=== PATIENT | female | born 1975 | race Caucasian/White ===

== ENCOUNTER 2021-06-28 14:22 | Outpatient (REF) | payer OTHER, SELFPAY ==
[2021-06-28 16:25] LABS: Alanine Aminotransferase 9 U/L (0-31); Albumin Level 3.5 g/dL (3.5-5.0); Alkaline Phosphatase 123 U/L (39-117); Anion Gap 20 (12-20); Aspartate Amino Transferase 16 U/L (5-31); Bilirubin Total 0.2 mg/dL (0.0-1.0); Blood Urea Nitrogen 35 mg/dL (9-16); Calcium 10.3 mg/dL (8.4-10.2); Carbon Dioxide 23 mmol/L (22-29); Chloride 100 mmol/L (96-108); Estimated Glomerular Filt Rate 15; Glucose Random 140 mg/dL (60-115); Potassium 5.8 mmol/L (3.3-5.1); Sodium 137 mmol/L (135-145); Total Protein 9.3 g/dL (6.5-8.0)
== END 2021-06-28 14:23 | disposition home or self-care (01) ==
LOC: HO.LAB 14:22
PROVIDERS: PCP Nurse Practitioner Family; Visit Provider Internal Medicine Hypertension Specialist
DX: E11.22 Type 2 diabetes mellitus with diabetic chronic kidney disease (principal); N18.4 Chronic kidney disease, stage 4 (severe)
CPT/HCPCS: 36415; 80053; 87086

== ENCOUNTER → 2022-02-01 10:57 | Outpatient (BNVA) | payer OTHER, SELFPAY | PROVIDERS: PCP Nurse Practitioner Family; Visit Provider Internal Medicine | DX: B49 Unspecified mycosis (principal) | CPT/HCPCS: 99202 ==

== ENCOUNTER 2022-02-18 06:21 | Day surgery (SDC) | payer OTHER, SELFPAY ==
--- NOTE | ~2022-02-18 | IR_ITS ---
PROCEDURE: IR INSERTION OF TUNNEL CATHETER CLINICAL INFORMATION: Sepsis. COMPARISON: None TECHNIQUE: Following explaining ultrasound and fluoroscopy-guided placement of a right-sided Ruelas catheter procedure, benefits and risk, a written consent was obtained. Patient was placed supine on fluoroscopy table and preliminary ultrasound imaging was obtained through the right neck. An optimal site was selected, marked, cleaned and draped in usual sterile manner. 1% lidocaine was injected puncture site. A single wall needle was then advanced under ultrasound guidance in the right jugular vein. After observing venous return a thin guidewire was advanced under fluoroscopy and placed in SVC and needle withdrawn. A 5 Nigerian dilator with sheath was placed over the guidewire and the entire unit anchored to the drape with hemostat. Approximately one-gauze length away from the right neck incision along the anterior chest wall 1% lidocaine was inserted. A small skin incision was performed. 1% lidocaine was then inserted through a subcutaneous track from the right anterior chest wall incision to the right neck incision. A tunneler attached was bluntly advanced from the right anterior chest wall incision to the right neck wall incision and was pulled with the catheter. The catheter was then sized appropriately. The 5 Nigerian dilator and the neck with the guidewire was removed and a 0.035 J-wire advanced and placed into the IVC under fluoroscopy. Subsequently a 5 Nigerian dilator was removed and replaced with a 6.6 Nigerian dilator with sheath. The guidewire and the dilator were removed and the pre sized 5 Nigerian Ruelas catheter was advanced through the peel-away sheath. The peel-away sheath was removed while holding the catheter in position. A single image was obtained following insertion of the catheter for documentation of catheter tip position. Single lumen Ruelas catheter was flushed with saline followed by heparin. 3-0 Nylon absorbable sutures were placed along the right anterior neck and the right anterior chest wall incision. Sterile dressing applied postprocedure. Patient tolerated procedure extremely well. IV sedation with fentanyl and Versed was administered during the exam. Patient was monitored by IR radiologist and IR nursing. All elements of maximal sterile barrier technique followed including use of cap, mask, sterile gown, sterile gloves, a sterile full body drape and hand hygiene. Also followed skin preparation with 2% chlorhexidine for cutaneous antisepsis, and sterile ultrasound preparation with sterile gel and probe cover when applicable. FINDINGS: On preliminary ultrasound imaging the right jugular vein is widely patent. Successful placement of 27 cm long 5 Nigerian Ruelas catheter with its tip in SVC. Fluoroscopy time: 1.4 minutes. Dose area product: 497 cGy. IR/IR cvc insert central tunnel IMPRESSION: Successful ultrasound and fluoroscopy-guided placement of 27 cm long 5 Nigerian Ruelas catheter with its tip in SVC.
[2022-02-18 07:28] VITALS: BMI 30.2
[2022-02-18 07:29] LABS: Glucose, Whole Blood 181 mg/dL (60-115)
[2022-02-18 07:50] LABS: MANUAL DIFF FLAG NO
[2022-02-18 07:51] LABS: Basophils Absolute Auto 0.1 X10*3/uL (0.0-0.2); Basophils Percent Auto 0.6 % (0-2); Eosinophils Absolute Auto 0.1 X10*3/uL (0.0-0.4); Eosinophils Percent Auto 1.2 % (0-4); Hematocrit 36.2 % (37.0-47.0); Hemoglobin 12.3 g/dl (12.0-16.0); Imm Gran Abs Auto 0.06 X10*3/uL (0.00-0.03); Imm Gran Pct Auto 0.7 % (0.0-0.4); Lymphocytes Absolute Auto 2.4 X10*3/uL (1.2-4.9); Lymphocytes Percent Auto 27.3 % (20-40); Mean Corpuscular Hemoglobin 28.5 pg (27.0-33.0); Mean Corpuscular Volume 83.8 fL (80.0-98.0); Mean Platelet Volume 9.9 fL (9.4-12.3); Monocytes Absolute Auto 0.6 X10*3/uL (0.1-1.2); Monocytes Percent Auto 6.6 % (2-11); Neutrophils Absolute Auto 5.7 x10*3/uL (2.0-8.3); Neutrophils Percent Auto 63.6 % (45-73); Platelet Count 266 X10*3/uL (160-400); Red Blood Count 4.32 X10*6/uL (4.20-5.50); Red Cell Distribution Width 12.8 % (11.0-16.0); White Blood Count 8.9 X10*3/uL (4.8-10.8)
[2022-02-18 08:07] LABS: Prothrombin Time 10.8 SEC (9.9-13.0)
[2022-02-18 08:09] LABS: Partial Thromboplastin Time 33.3 SEC (24.1-38.0)
[2022-02-18 10:24] VITALS: BP 141/93; PULSE 89; RESP 16; TEMP 36.8; O2SAT 99
[2022-02-18 10:39] VITALS: BP 140/92; PULSE 95; RESP 16; TEMP 36.6; O2SAT 100
[2022-02-18 11:28] LABS: Glucose, Whole Blood 113 mg/dL (60-115)
== END 2022-02-18 12:00 | disposition home or self-care (01) ==
PROVIDERS: PCP Nurse Practitioner Family; Visit Provider Radiology Diagnostic Radiology
DX: B49 Unspecified mycosis (principal); N13.9 Obstructive and reflux uropathy, unspecified; N39.0 Urinary tract infection, site not specified; I10 Essential (primary) hypertension; E11.9 Type 2 diabetes mellitus without complications; F41.1 Generalized anxiety disorder; E28.2 Polycystic ovarian syndrome; Z88.8 Allergy status to other drugs, medicaments and biological substances; Z91.041 Radiographic dye allergy status; Z98.890 Other specified postprocedural states; Z90.49 Acquired absence of other specified parts of digestive tract; Z87.891 Personal history of nicotine dependence
CPT/HCPCS: 36415; 36558; 82947; 85025; 85610; 85730; 99152; 99153; C1751; C1769; J0690; J1642; J2250; J3010

== ENCOUNTER 2022-02-18 12:20 | Outpatient (REF) | payer OTHER, SELFPAY | END 2022-02-18 12:21 | disposition home or self-care (01) | LOC: HO.MDS 12:20 | PROVIDERS: PCP Nurse Practitioner Family; Visit Provider Internal Medicine | DX: Z45.2 Encounter for adjustment and management of vascular access device (principal); B49 Unspecified mycosis | CPT/HCPCS: 96365; J0637 ==

== ENCOUNTER 2022-02-19 10:13 | Outpatient (REF) | payer OTHER, SELFPAY | END 2022-02-19 10:14 | disposition home or self-care (01) | LOC: HO.MDS 10:13 | PROVIDERS: Visit Provider Internal Medicine | DX: Z45.2 Encounter for adjustment and management of vascular access device (principal); B49 Unspecified mycosis; N15.9 Renal tubulo-interstitial disease, unspecified; R20.8 Other disturbances of skin sensation; T36.7X5A Adverse effect of antifungal antibiotics, systemically used, initial encounter; Y92.530 Ambulatory surgery center as the place of occurrence of the external cause | CPT/HCPCS: 96365; J0637 ==

== ENCOUNTER 2022-02-20 09:51 | Outpatient (REF) | payer OTHER, SELFPAY | END 2022-02-20 09:52 | disposition home or self-care (01) | LOC: HO.MDS 09:51 | PROVIDERS: Visit Provider Internal Medicine | DX: Z45.2 Encounter for adjustment and management of vascular access device (principal); B49 Unspecified mycosis; N15.9 Renal tubulo-interstitial disease, unspecified | CPT/HCPCS: 96365; J0637 ==

== ENCOUNTER 2022-02-20 11:36 | Emergency (ER) | payer OTHER, SELFPAY ==
--- NOTE | 2022-02-20 | ECG_ITS ---
Test Reason : CHEST BURNING Blood Pressure : / mmHG Vent. Rate : 092 BPM Atrial Rate : 092 BPM P-R Int : 128 ms QRS Dur : 084 ms QT Int : 364 ms P-R-T Axes : 079 040 088 degrees QTc Int : 450 ms Normal sinus rhythm Nonspecific ST and T wave abnormality Abnormal ECG No previous ECGs available Referred By: Generic ED Physician Electronically Signed By:Sherman Aviles
--- NOTE | ~2022-02-20 | CT_ITS ---
EXAMINATION: CT CHEST WITHOUT CONTRAST CLINICAL INFORMATION: Sepsis. Status post Ruelas catheter placement and 02/18/2022. Fluid surrounding the port. COMPARISON: Ruelas catheter placement done on 02/18/2022. TECHNIQUE: Multidetector volumetric CT imaging of the chest was done. Axial MIP volume rendering provided. Sagittal and coronal reformatted images were obtained. This CT examination was performed using dose optimization techniques as appropriate, variously including the following: *Automated exposure control *Adjustment of mA and/or kV according to patient size (this includes techniques or standardized protocols for targeted exams where dose is matched to indication/reason for exam; i.e. extremities or head) *Use of iterative reconstruction technique DLP: 451 mGy-cm FINDINGS: VICE PRESIDENT: The right IJ Ruelas catheter is identified with its tip seen projecting at the cavoatrial junction. LUNGS: Solitary sub-5 mm Nohelia-fissural nodule is noted around the right minor fissure (237:18). Sub-5 mm calcified nodule is noted within the left upper lobe near the apex (135:10). Linear, nodular sub-5 mm opacity is noted along the anterior medial aspect of the lingular segment of the left upper lobe ( 219:10). Oval-shaped subpleural nodule is noted within the left lower lobe laterally (257:10). Nohelia-fissural 2 to 3 mm nodule is noted at superior part of the left major fissure (193:10). No evidence of any dense airspace consolidation. The tracheobronchial tree is patent. MEDIASTINUM: Right-sided Ruelas catheter is identified its tip seen projecting at the cavoatrial junction. There is no evidence of any fluid collection identified at the catheter entry site involving the right upper anterior chest wall. The catheter is intact. Thyroid gland is unremarkable. There are no pathologically enlarged mediastinal and/or hilar lymphadenopathy present. Mild atherosclerotic disease of the coronary artery. PLEURA: There is no pleural effusion. No pleural mass or thickening. AXILLA: No lymphadenopathy. UPPER ABDOMEN: Diffuse hepatic hypodensity consistent with hepatic steatosis is present. Both adrenals are unremarkable. Partial fatty replacement of the partially included visualized part of the pancreas. OSSEOUS STRUCTURES: Postsurgical changes of anterior cervical intervertebral disc fusion at C6-C7 with intact hardware. Mild mid to anterior compression deformity of T7, of indeterminate etiology and chronicity. CT/CT chest wo con IMPRESSION: 1. No CT evidence of any definite localized fluid collection identified around the visualized part of right IJ Ruelas catheter. The catheter appears intact. 2. Incidental note is made of a few lung parenchymal as well as Nohelia-fissural nodules seen bilaterally. There are no prior studies available for comparison. Sub-5 mm possibly calcified granuloma at left upper lobe of the lung. 3. No CT evidence of any pneumonia, pleural effusion or pneumothorax or mediastinal or hilar lymphadenopathy. 4. Mild atherosclerotic disease of the coronary arteries. 5. Diffuse hepatic steatosis. 6. Postsurgical changes of anterior cervical intervertebral disks and vertebral body fusion C6-C7 with intact hardware. Mild mid to anterior compression deformity of T7, particularly given chronicity. According to the UPDATED 2017 Fleischner Society recommendations, the advised follow-up imaging for solid nodules < 6 mm is: LOW RISK PATIENT: No routine follow-up. HIGH RISK PATIENT: Optional CT at 12 months. Fleischner guidelines were followed.
--- NOTE | 2022-02-20 11:42 | ED.GENADULT ---
HPI - General Adult General Chief complaint: Allergic Reaction Stated complaint: allergic reaction Time Seen by Provider: 02/20/22 11:42 Source: patient Mode of arrival: ambulatory Limitations: no limitations History of Present Illness HPI narrative: Patient is a 46 year old female presenting to the emergency department today with a possible allergic reaction to antifungal medications. Patient states that she recently had a port placed on her right side for antifungal infusions. 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 Patient states that she got her first infusion in a peripheral IV and it went fine. However, she got an infusion through her new port today and started to have a painful sensation just underneath the port. Patient states that when the infusion stopped, the pain stopped. Patient denies any dizziness, lightheadedness, abdominal pain, nausea, vomiting, fever, chills, blurry vision, double vision, loss of vision, chest pain, difficulty breathing, shortness of breath, back pain, night sweats, pain with urination, increased urinary frequency, increased urinary urgency, blood in her urine or stool, syncope or a near syncopal episode, recent trauma or falls, bowel incontinence, bladder incontinence, bowel retention, bladder retention, or any other complaints at this time. Severity: mild Severity scale (1-10): 2 Quality: dull Pain Consistency: now resolved Relieving factors: none Exacerbating factors: none Associated symptoms: denies other symptoms Treatments prior to arrival: none Related Data Home Medications Medication Instructions Recorded Confirmed amlodipine 5 mg tablet 5 mg PO DAILY 02/01/22 cholecalciferol (vitamin D3) 25 25 mcg PO DAILY 02/01/22 mcg (1,000 unit) capsule famotidine 20 mg tablet 20 mg PO BID 02/01/22 ferrous fumarate 325 mg (106 mg 325 mg PO DAILY 02/01/22 iron) tablet furosemide 40 mg tablet (Lasix) 40 mg PO DAILY 02/01/22 insulin glargine 100 unit/mL 35 unit SUBCUT ONCE ml 02/01/22 subcutaneous solution (Lantus U-100 Insulin) insulin lispro 100 unit/mL 1 sliding scale dose SUBCUT 02/01/22 subcutaneous pen USEASDIRECTD quetiapine 300 mg tablet (Seroquel) 300 mg PO BEDTIME 02/01/22 sennosides 8.6 mg capsule (senna) 8.6 mg PO BEDTIME 02/01/22 Previous Rx's Medication Instructions Recorded caspofungin 50 mg intravenous 50 mg IV Q24H 13 Days #13 ea 02/01/22 solution caspofungin 70 mg intravenous 70 mg IV Q24H 1 Days #1 ea 02/01/22 solution Allergies Allergy/AdvReac Type Severity Reaction Status Date / Time prednisone Allergy Severe vaginal Verified 02/01/22 11:20 bleeding Iodine and Iodide Containing Allergy Intermediate Rash Verified 02/01/22 11:20 Produc Review of Systems Constitutional: Constitutional: Reports no additional constitutional complaints, Denies chills, Denies fever(s) and Denies night sweats Eyes: Eyes: Reports no additional eye complaints, Denies blurry vision, Denies change in vision, Denies diplopia, Denies eye discharge, Denies loss of vision and Denies eye pain ENT: Denies dizziness Cardiovascular: Cardiovascular: Reports no additional cardiovascular complaints, Denies chest pain, Denies lightheadedness, Denies Loss of Consciousness and Denies dyspnea Respiratory: Respiratory: Reports no additional respiratory complaints and Denies dyspnea Gastrointestinal: Gastrointestinal: Reports no additional gastrointestinal complaints, Denies abdominal pain, Denies melena, Denies hematochezia, Denies change in bowel habits and Denies change in stool character Genitourinary: Genitourinary: Denies hematuria, Denies urinary frequency, Denies dysuria, Denies urinary incontinence, Denies urinary hesitancy and Denies urinary urgency Musculoskeletal: Musculoskeletal: Reports no additional musculoskeletal complaints, Denies numbness and Denies tingling Neurologic: Denies dizziness, Denies loss of vision, Denies numbness and Denies tingling Psychiatric: Psychiatric: Reports no additional psychiatric complaints Endocrine: Endocrine: Reports no additional endocrine complaints Hematologic/Lymphatic: Hematologic/Lymphatic: Reports no additional hematologic/lymphatic complaints Allergic/Immunologic: Allergic/Immunologic: Reports no additional allergic/immunologic complaints [facility] Past Medical History Attestation statement: The following information was validated with the patient. Source: old records reviewed Medical History Anxiety Diabetes Fungus ball Hernia HTN (hypertension) Hx of blood transfusion reaction PCOS (polycystic ovarian syndrome) Surgical History H/O brain surgery H/O oral surgery H/O shoulder surgery History of mandibular surgery Hx of cholecystectomy S/P discectomy for herniated nucleus pulposus Family History Family History Father Diabetes HTN (hypertension) Mother Diabetes HTN (hypertension) CAD (coronary artery disease) Social History Social History Household Members Other:: female partner Housing: Apartment Alcohol intake: never Patient Tobacco Use Status: Former Tobacco user Tobacco use type: Cigarette Cigarettes Per Day: 20 Years Smoked: 30 Advance Directives: No Advance Directives Information Provided: No Physical Exam ED Vital Signs: Vital Signs - 24 hr 02/20/22 11:44 Pulse Rate 94 Respiratory Rate 20 Blood Pressure 139/86 Pulse Oximetry 100 BMI result Body Mass Index 30.2 Const General: cooperative, no acute distress, alert and awake Nutritional Appearance: well nourished Orientation/consciousness: patient oriented x3 Limitations: no limitations HENMT Head: Yes normal to inspection and Yes atraumatic Ears: hearing grossly normal bilaterally and external ears normal General nose exam: Normal external nose present, no nasal discharge noted and no epistaxis Face and sinus: Yes normal facial exam, No abrasion and No laceration Mouth: Normal oral and palatal mucosa present, no drooling and no muffled voice Eyes General: appearance normal, both eyes and all related structures Periorbital: periorbital findings normal Eyelids: Yes eyelids normal Conjunctivae: conjunctivae normal Pupils: Equal, round and reactive pupils present EOM: EOMs intact bilaterally Neck Neck: Yes normal visual inspection, Yes full ROM and Yes no lymphadenopathy Chest Other: port in place in the upper right chest, appropriate appearing with no bleeding or discharge from around the site, no warmth or erythema to the site Resp Effort & Inspection: normal respiratory effort and able to speak in complete sentences Auscultation: clear to auscultation bilaterally Cardio Rate: regular rate Rhythm: regular rhythm GI Inspection: Yes normal to inspection Neuro General: patient oriented x3 and moves all extremities Cranial nerves: Yes Equal, round and reactive pupils present Cognition (Neuro): normal cognition Motor exam (neuro): 5/5 motor strength present throughout Sensory Exam: Normal double simultaneous stimulation for sensation Coordination: [id number] test normal Extrem General: Yes normal to inspection, Yes full ROM and Yes capillary refill normal Psych Appearance: grossly normal Mental Status: mental status grossly normal Affect: normal affect Attitude: cooperative Thought process: Normal thought process present Thought content: Normal thought content present Insight: Good insight present (Psych) Medical Decision Making MDM Narrative Medical decision making narrative: Patient is a 46 year old female presenting to the emergency department today with a possible allergic reaction. Patient's physical exam showed a port in place in the right upper chest with no surrounding erythema, warmth, or discharge. Patient's chest CT showed no acute process but did show an incidental nodule and an appropriate right sided port. I explained my physical exam findings as well as all test results to the patient and the patient's partner. I answered all questions asked by the patient and the patient's partner. I stressed the importance of the patient taking her medication as prescribed. I stressed the importance of the patient following up with her primary care provider, infectious disease specialist, and the individual that placed the port. I stressed the importance of the patient returning to the emergency department immediately if her symptoms were to worsen or if she were to develop any dizziness, shortness of breath, difficulty breathing, chest pain, blurry vision, loss of vision, nausea, vomiting, abdominal pain, fever, chills, back pain, or any other complaints. Patient verbalized agreement and understanding with this treatment plan and discharge. Differential Diagnosis Differential Diagnosis: allergic reaction, port issues Medical Records Medical records reviewed: Yes I reviewed the patient's medical records. Imaging Data CT scan - chest: Attestation: I personally reviewed and interpreted this imaging study as follows: Radiologist's impression: EXAMINATION: CT CHEST WITHOUT CONTRAST CLINICAL INFORMATION: Sepsis. Status post Ruelas catheter placement and 02/18/2022. Fluid surrounding the port.? COMPARISON: Ruelas catheter placement done on 02/18/2022.? TECHNIQUE: Multidetector volumetric CT imaging of the chest was done. Axial MIP volume rendering provided. Sagittal and coronal reformatted images were obtained.? This CT examination was performed using dose optimization techniques as appropriate, variously including the following: *Automated exposure control *Adjustment of mA and/or kV according to patient size (this includes techniques or standardized protocols for targeted exams where dose is matched to indication/reason for exam; i.e. extremities or head) *Use of iterative reconstruction technique DLP: 451 mGy-cm FINDINGS: WIRE WEAVER CLOTH: The right IJ Ruelas catheter is identified with its tip seen projecting at the cavoatrial junction. LUNGS: Solitary sub-5 mm Nohelia-fissural nodule is noted around the right minor fissure (237:18). Sub-5 mm calcified nodule is noted within the left upper lobe near the apex (135:10). Linear, nodular sub-5 mm opacity is noted along the anterior medial aspect of the lingular segment of the left upper lobe ( 219:10). Oval-shaped subpleural nodule is noted within the left lower lobe laterally (257:10). Nhoelia-fissural 2 to 3 mm nodule is noted at superior part of the left major fissure (193:10). No evidence of any dense airspace consolidation. The tracheobronchial tree is patent. MEDIASTINUM: Right-sided Ruelas catheter is identified its tip seen projecting at the cavoatrial junction. There is no evidence of any fluid collection identified at the catheter entry site involving the right upper anterior chest wall. The catheter is intact. Thyroid gland is unremarkable. There are no pathologically enlarged mediastinal and/or hilar lymphadenopathy present. Mild atherosclerotic disease of the coronary artery. PLEURA: There is no pleural effusion. No pleural mass or thickening.? AXILLA: No lymphadenopathy.? UPPER ABDOMEN: Diffuse hepatic hypodensity consistent with hepatic steatosis is present. Both adrenals are unremarkable. Partial fatty replacement of the partially included visualized part of the pancreas. OSSEOUS STRUCTURES: Postsurgical changes of anterior cervical intervertebral disc fusion at C6-C7 with intact hardware. Mild mid to anterior compression deformity of T7, of indeterminate etiology and chronicity.? CT/CT chest wo con IMPRESSION: ? 1. No CT evidence of any definite localized fluid collection identified around the visualized part of right IJ Ruelas catheter. The catheter appears intact. 2. Incidental note is made of a few lung parenchymal as well as Nohelia-fissural nodules seen bilaterally. There are no prior studies available for comparison. Sub-5 mm possibly calcified granuloma at left upper lobe of the lung. 3. No CT evidence of any pneumonia, pleural effusion or pneumothorax or mediastinal or hilar lymphadenopathy. 4. Mild atherosclerotic disease of the coronary arteries. 5. Diffuse hepatic steatosis. 6. Postsurgical changes of anterior cervical intervertebral disks and vertebral body fusion C6-C7 with intact hardware. Mild mid to anterior compression deformity of T7, particularly given chronicity. ? According to the UPDATED 2017 Fleischner Society recommendations, the advised follow-up imaging for solid nodules < 6 mm is: ?? LOW RISK PATIENT: No routine follow-up. ?? HIGH RISK PATIENT: Optional CT at 12 months. ? Fleischner guidelines were followed. Dictated By: Jacob Su MD Signed By: Electronically signed by Jacob Su MD 02/20/22 9882 Discharge Plan Discharge Clinical Impression: Fungus ball, History of insertion of tunneled central venous catheter (CVC) with port Patient Disposition: Home, Self-Care Instructions: Implanted Venous Access Port (DC) Additional Instructions: Follow up with your primary care provider and your ID provider. Return to the emergency department immediately if your symptoms worsen or if you develop any dizziness, shortness of breath, difficulty breathing, chest pain, blurry vision, loss of vision, nausea, vomiting, abdominal pain, fever, chills, back pain, or any other complaints. Prescriptions: No Action insulin lispro 100 unit/mL insulin pen 1 sliding scale dose subcut USEASDIRECTD 0RF Lantus U-100 Insulin 100 unit/mL solution 35 unit subcut ONCE 0RF cholecalciferol (vitamin D3) 25 mcg (1,000 unit) capsule 25 mcg PO DAILY 0RF Rx Instructions: 2 tabs daily ferrous fumarate 325 mg (106 mg iron) tablet 325 mg PO DAILY 0RF famotidine 20 mg tablet 20 mg PO BID 0RF furosemide [Lasix] 40 mg tablet 40 mg PO DAILY 0RF amlodipine 5 mg tablet 5 mg PO DAILY 0RF senna 8.6 mg capsule 8.6 mg PO BEDTIME 0RF quetiapine [Seroquel] 300 mg tablet 300 mg PO BEDTIME 0RF caspofungin 70 mg recon soln 70 mg IV Q24H 1 Days Qty: 1 0RF caspofungin 50 mg recon soln 50 mg IV Q24H 13 Days Qty: 13 0RF Rx Instructions: start day after 70 mg loading dose Referrals: [facility] [place] Family Medicine [Provider Group] (Call to establish with a PCP if you do not have one. If you have one, please follow up with them. ) [facility] [place] Primary Care, Anders [Provider Group] (Call to establish with a PCP if you do not have one. If you have one, please follow up with them. ) [facility] [place] Primary Care,Marita [Provider Group] (Call to establish with a PCP if you do not have one. If you have one, please follow up with them. ) Physician,Unknown J [Primary Care Provider] - 1 Week Interventions: ED Discharge Assessment Last Done: 02/20/22 14:07 Discharge Date/Time: 02/20/22 14:41 Print Language: Welsh
[2022-02-20 11:44] VITALS: BP 139/86; PULSE 94; RESP 20; O2SAT 100; BMI 30.2
== END 2022-02-20 14:41 | disposition home or self-care (01) ==
PROVIDERS: Emergency Provider Emergency Medicine
DX: B48.8 Other specified mycoses (principal); I10 Essential (primary) hypertension; E11.9 Type 2 diabetes mellitus without complications; Z95.9 Presence of cardiac and vascular implant and graft, unspecified
CPT/HCPCS: 71250; 93005; 99284

== ENCOUNTER 2022-02-21 12:29 | Outpatient (REF) | payer OTHER, SELFPAY | END 2022-02-21 12:30 | disposition home or self-care (01) | LOC: HO.MDS 12:29 | PROVIDERS: PCP Nurse Practitioner Family; Visit Provider Internal Medicine | DX: Z45.2 Encounter for adjustment and management of vascular access device (principal); B49 Unspecified mycosis; N15.9 Renal tubulo-interstitial disease, unspecified | CPT/HCPCS: 96365; J0637 ==

== ENCOUNTER 2022-02-22 12:25 | Outpatient (REF) | payer OTHER, SELFPAY | END 2022-02-22 12:26 | disposition home or self-care (01) | LOC: HO.MDS 12:25 | PROVIDERS: PCP Nurse Practitioner Family; Visit Provider Internal Medicine | DX: Z45.2 Encounter for adjustment and management of vascular access device (principal); B49 Unspecified mycosis; N15.9 Renal tubulo-interstitial disease, unspecified | CPT/HCPCS: 96365; J0637 ==

== ENCOUNTER 2022-02-23 12:45 | Outpatient (REF) | payer OTHER, SELFPAY | END 2022-02-23 12:46 | disposition home or self-care (01) | LOC: HO.MDS 12:45 | PROVIDERS: PCP Nurse Practitioner Family; Visit Provider Internal Medicine | DX: Z45.2 Encounter for adjustment and management of vascular access device (principal); B49 Unspecified mycosis; N15.9 Renal tubulo-interstitial disease, unspecified | CPT/HCPCS: 96365; J0637 ==

== ENCOUNTER 2022-02-24 12:44 | Outpatient (REF) | payer OTHER, SELFPAY | END 2022-02-24 12:45 | disposition home or self-care (01) | LOC: HO.MDS 12:44 | PROVIDERS: PCP Nurse Practitioner Family; Visit Provider Internal Medicine | DX: Z45.2 Encounter for adjustment and management of vascular access device (principal); B49 Unspecified mycosis; N15.9 Renal tubulo-interstitial disease, unspecified | CPT/HCPCS: 96365; J0637 ==

== ENCOUNTER 2022-02-25 11:52 | Outpatient (REF) | payer OTHER, SELFPAY | END 2022-02-25 11:53 | disposition home or self-care (01) | LOC: HO.MDS 11:52 | PROVIDERS: PCP Nurse Practitioner Family; Visit Provider Internal Medicine | DX: Z45.2 Encounter for adjustment and management of vascular access device (principal); B49 Unspecified mycosis; N15.9 Renal tubulo-interstitial disease, unspecified; R10.2 Pelvic and perineal pain; I10 Essential (primary) hypertension; E11.9 Type 2 diabetes mellitus without complications; Z87.891 Personal history of nicotine dependence; Z88.8 Allergy status to other drugs, medicaments and biological substances | CPT/HCPCS: 96365; 99212; J0637 ==

== ENCOUNTER 2022-02-26 09:52 | Outpatient (REF) | payer OTHER, SELFPAY | END 2022-02-26 09:53 | disposition home or self-care (01) | LOC: HO.MDS 09:52 | PROVIDERS: PCP Nurse Practitioner Family; Visit Provider Internal Medicine | DX: Z45.2 Encounter for adjustment and management of vascular access device (principal); N15.9 Renal tubulo-interstitial disease, unspecified | CPT/HCPCS: 96365; J0637 ==

== ENCOUNTER 2022-02-27 09:58 | Outpatient (REF) | payer OTHER, SELFPAY | END 2022-02-27 09:59 | disposition home or self-care (01) | LOC: HO.MDS 09:58 | PROVIDERS: PCP Nurse Practitioner Family; Visit Provider Internal Medicine | DX: Z45.2 Encounter for adjustment and management of vascular access device (principal); B49 Unspecified mycosis; N15.9 Renal tubulo-interstitial disease, unspecified | CPT/HCPCS: 96365; J0637 ==

== ENCOUNTER 2022-02-28 09:50 | Outpatient (REF) | payer OTHER, SELFPAY | END 2022-02-28 09:51 | disposition home or self-care (01) | LOC: HO.MDS 09:50 | PROVIDERS: PCP Nurse Practitioner Family; Visit Provider Internal Medicine | DX: Z45.2 Encounter for adjustment and management of vascular access device (principal); B49 Unspecified mycosis; N15.9 Renal tubulo-interstitial disease, unspecified | CPT/HCPCS: 96365; J0637 ==

== ENCOUNTER 2022-03-01 13:00 | Outpatient (REF) | payer OTHER, SELFPAY | END 2022-03-01 13:01 | disposition home or self-care (01) | LOC: HO.MDS 13:00 | PROVIDERS: PCP Nurse Practitioner Family; Visit Provider Internal Medicine | DX: B49 Unspecified mycosis (principal); N15.9 Renal tubulo-interstitial disease, unspecified | CPT/HCPCS: 96365; J0637 ==

== ENCOUNTER 2022-03-02 12:28 | Outpatient (REF) | payer OTHER, SELFPAY | END 2022-03-02 12:29 | disposition home or self-care (01) | LOC: HO.MDS 12:28 | PROVIDERS: Visit Provider Internal Medicine | DX: Z45.2 Encounter for adjustment and management of vascular access device (principal); B49 Unspecified mycosis; N15.9 Renal tubulo-interstitial disease, unspecified | CPT/HCPCS: 96365; J0637 ==

== ENCOUNTER 2022-03-03 08:44 | Outpatient (REF) | payer OTHER, SELFPAY ==
--- NOTE | ~2022-03-03 | IR_ITS ---
PROCEDURE: RIGHT PROLINE REMOVAL CLINICAL INFORMATION: Unspecified mycosis. COMPARISON: 02/18/2022 TECHNIQUE: Blunt dissection of right internal jugular ProLine catheter. FINDINGS: Using sterile technique the indwelling right chest ProLine catheter was removed with blunt dissection in its entirety of 27 cm. There is also noted to be an exposed stitch in the right internal jugular access site which was removed at the skin surface. Patient tolerated procedure without difficulty. IR/IR cvc remov tunnel wo prt/nickel plater IMPRESSION: Right internal jugular ProLine removal.
== END 2022-03-03 08:45 | disposition home or self-care (01) ==
LOC: HO.RADIR 08:44
PROVIDERS: Visit Provider Internal Medicine
DX: B49 Unspecified mycosis (principal); Z45.2 Encounter for adjustment and management of vascular access device
CPT/HCPCS: 36589; 96365

== ENCOUNTER 2022-03-11 12:19 | Outpatient (REF) | payer OTHER, SELFPAY ==
--- NOTE | ~2022-03-11 | US_ITS ---
EXAMINATION: US RETROPERITONEAL LIMITED (RENAL ONLY) CLINICAL INFORMATION: Unspecified mycosis.. Chronic kidney disease stage IV COMPARISON: None TECHNIQUE: Real-time imaging of the kidneys. FINDINGS: RIGHT KIDNEY: 11.4 x 5.2 x 6.0 cm (SAG x AP x TRV). The kidney is normal in size, contour, and echogenicity. Renal cortical thickness is normal. No calculi or focal parenchymal lesions. No hydronephrosis. LEFT KIDNEY: 11.1 x 5.5 x 5.3 cm (SAG x AP x TRV). The kidney is normal in size, contour, and echogenicity. Renal cortical thickness is normal. No calculi or focal parenchymal lesions. No hydronephrosis. US/US renal BI IMPRESSION: Normal renal ultrasound..
== END 2022-03-11 12:20 | disposition home or self-care (01) ==
LOC: HO.US 12:19
PROVIDERS: Visit Provider Internal Medicine
DX: B49 Unspecified mycosis (principal)
CPT/HCPCS: 76775; 99212

== ENCOUNTER 2022-03-14 14:05 | Outpatient (REF) | payer OTHER, SELFPAY ==
[2022-03-14 15:03] LABS: Hemoglobin 11.9 g/dl (12.0-16.0); Mean Corpuscular HGB Conc 33.1 g/dl (31.0-35.0); Mean Corpuscular Hemoglobin 28.4 pg (27.0-33.0); Mean Corpuscular Volume 85.9 fL (80.0-98.0); Mean Platelet Volume 10.8 fL (9.4-12.3); Platelet Count 291 X10*3/uL (160-400); Red Blood Count 4.19 X10*6/uL (4.20-5.50); Red Cell Distribution Width 13.4 % (11.0-16.0); White Blood Count 9.3 X10*3/uL (4.8-10.8)
[2022-03-14 15:45] LABS: Alanine Aminotransferase 32 U/L (0-31); Alkaline Phosphatase 83 U/L (39-117); Anion Gap 17 (12-20); Aspartate Amino Transferase 27 U/L (5-31); Bilirubin Total 0.4 mg/dL (0.0-1.0); Blood Urea Nitrogen 23 mg/dL (9-16); Calcium 9.7 mg/dL (8.4-10.2); Carbon Dioxide 26 mmol/L (22-29); Chloride 97 mmol/L (96-108); Estimated Glomerular Filt Rate 28; Glucose Random 262 mg/dL (60-115); Potassium 3.9 mmol/L (3.3-5.1); Sodium 136 mmol/L (135-145); Total Protein 8.1 g/dL (6.5-8.0)
== END 2022-03-14 14:06 | disposition home or self-care (01) ==
LOC: HO.LAB 14:05
PROVIDERS: PCP Nurse Practitioner Family; Visit Provider Internal Medicine Hypertension Specialist
DX: I12.9 Hypertensive chronic kidney disease with stage 1 through stage 4 chronic kidney disease, or unspecified chronic kidney disease (principal); N18.32 Chronic kidney disease, stage 3b
CPT/HCPCS: 36415; 80053; 85027

== ENCOUNTER 2022-03-16 09:59 | Outpatient (REF) | payer OTHER, SELFPAY ==
[2022-03-16 10:27] LABS: Hematocrit 37.2 % (37.0-47.0); Hemoglobin 12.5 g/dl (12.0-16.0); Mean Corpuscular HGB Conc 33.6 g/dl (31.0-35.0); Mean Corpuscular Hemoglobin 28.4 pg (27.0-33.0); Mean Corpuscular Volume 84.5 fL (80.0-98.0); Mean Platelet Volume 10.5 fL (9.4-12.3); Platelet Count 318 X10*3/uL (160-400); Red Cell Distribution Width 13.3 % (11.0-16.0); White Blood Count 11.7 X10*3/uL (4.8-10.8)
[2022-03-16 11:24] LABS: Appearance Urine CLOUDY; Color Urine YELLOW; Glucose Urine UA 100 MG/DL (NEG); Leukocyte Esterase Urine 2+ (NEG); Nitrite Urine NEG (NEG); Urine Blood NEG (NEG); Urine Ketones NEG (NEG); Urine Protein TRACE MG/DL (NEG-TRACE)
[2022-03-16 11:42] LABS: Bacteria Urine 1+ /LPF; RBC Urine 0 /HPF (0); Squamous Epithelial Cell Urine 1+ /LPF
[2022-03-16 11:53] LABS: Alanine Aminotransferase 32 U/L (0-31); Albumin Level 4.2 g/dL (3.5-5.0); Alkaline Phosphatase 86 U/L (39-117); Anion Gap 15 (12-20); Aspartate Amino Transferase 25 U/L (5-31); Bilirubin Direct < 0.2 mg/dL (0.0-0.5); Bilirubin Total 0.3 mg/dL (0.0-1.0); Blood Urea Nitrogen 23 mg/dL (9-16); Calcium 9.7 mg/dL (8.4-10.2); Carbon Dioxide 27 mmol/L (22-29); Chloride 98 mmol/L (96-108); Estimated Glomerular Filt Rate 27; Glucose Random 234 mg/dL (60-115); Sodium 136 mmol/L (135-145); Total Protein 8.4 g/dL (6.5-8.0)
[2022-03-16 11:58] LABS: Creatinine Urine 68.21 mg/dL; Protein/Creatinine Ratio, Ur 0.41 (<0.2); Total Protein Urine Random 28 mg/dL (<12)
== END 2022-03-16 10:00 | disposition home or self-care (01) ==
LOC: HO.LAB 09:59
PROVIDERS: Internal Medicine; PCP Nurse Practitioner Family; Visit Provider Internal Medicine Hypertension Specialist
DX: I12.9 Hypertensive chronic kidney disease with stage 1 through stage 4 chronic kidney disease, or unspecified chronic kidney disease (principal); N18.32 Chronic kidney disease, stage 3b; B49 Unspecified mycosis
CPT/HCPCS: 36415; 80048; 80076; 81001; 84156; 85027; 87086

== ENCOUNTER 2022-05-31 14:09 | Outpatient (REF) | payer OTHER, SELFPAY ==
[2022-05-31 14:28] LABS: Hematocrit 34.5 % (37.0-47.0); Hemoglobin 11.7 g/dl (12.0-16.0); Mean Corpuscular HGB Conc 33.9 g/dl (31.0-35.0); Mean Corpuscular Hemoglobin 28.5 pg (27.0-33.0); Mean Corpuscular Volume 83.9 fL (80.0-98.0); Mean Platelet Volume 10.1 fL (9.4-12.3); Platelet Count 286 X10*3/uL (160-400); Red Blood Count 4.11 X10*6/uL (4.20-5.50); Red Cell Distribution Width 14.6 % (11.0-16.0); White Blood Count 7.9 X10*3/uL (4.8-10.8)
[2022-05-31 14:46] LABS: Anion Gap 17 (12-20); Blood Urea Nitrogen 13 mg/dL (9-16); Calcium 8.7 mg/dL (8.4-10.2); Carbon Dioxide 27 mmol/L (22-29); Chloride 98 mmol/L (96-108); Estimated Glomerular Filt Rate 31; Glucose Random 271 mg/dL (60-115); Potassium 3.8 mmol/L (3.3-5.1); Sodium 138 mmol/L (135-145)
== END 2022-05-31 14:10 | disposition home or self-care (01) ==
LOC: HO.LAB 14:09
PROVIDERS: PCP Nurse Practitioner Family; Visit Provider Internal Medicine Hypertension Specialist
DX: N18.4 Chronic kidney disease, stage 4 (severe) (principal)
CPT/HCPCS: 36415; 80048; 85027

== ENCOUNTER 2022-06-27 13:49 | Outpatient (REF) | payer OTHER, SELFPAY ==
[2022-06-27 14:14] LABS: MANUAL DIFF FLAG NO
[2022-06-27 14:48] LABS: Basophils Absolute Auto 0.1 X10*3/uL (0.0-0.2); Basophils Percent Auto 0.5 % (0-2); Eosinophils Absolute Auto 0.1 X10*3/uL (0.0-0.4); Eosinophils Percent Auto 1.5 % (0-4); Hematocrit 36.9 % (37.0-47.0); Hemoglobin 12.3 g/dl (12.0-16.0); Imm Gran Abs Auto 0.04 X10*3/uL (0.00-0.03); Imm Gran Pct Auto 0.4 % (0.0-0.4); Lymphocytes Absolute Auto 2.3 X10*3/uL (1.2-4.9); Lymphocytes Percent Auto 24.9 % (20-40); Mean Corpuscular HGB Conc 33.3 g/dl (31.0-35.0); Mean Corpuscular Hemoglobin 28.7 pg (27.0-33.0); Mean Platelet Volume 11.5 fL (9.4-12.3); Monocytes Absolute Auto 0.6 X10*3/uL (0.1-1.2); Monocytes Percent Auto 6.1 % (2-11); Neutrophils Absolute Auto 6.2 x10*3/uL (2.0-8.3); Neutrophils Percent Auto 66.6 % (45-73); Platelet Count 241 X10*3/uL (160-400); Red Blood Count 4.29 X10*6/uL (4.20-5.50); Red Cell Distribution Width 14.3 % (11.0-16.0); White Blood Count 9.3 X10*3/uL (4.8-10.8)
[2022-06-27 15:58] LABS: Estimated Average Glucose 232 mg/dL; Hemoglobin A1c % 9.7 %
[2022-06-27 16:26] LABS: Alanine Aminotransferase 22 U/L (0-31); Albumin Level 3.9 g/dL (3.5-5.0); Alkaline Phosphatase 89 U/L (39-117); Aspartate Amino Transferase 22 U/L (5-31); Bilirubin Total 0.3 mg/dL (0.0-1.0); Blood Urea Nitrogen 20 mg/dL (9-16); Estimated Glomerular Filt Rate 29; Glucose Random 289 mg/dL (60-115)
[2022-06-27 16:36] LABS: Anion Gap 23 (12-20); Carbon Dioxide 23 mmol/L (22-29); Chloride 94 mmol/L (96-108); Potassium 3.6 mmol/L (3.3-5.1); Sodium 136 mmol/L (135-145)
== END 2022-06-27 13:50 | disposition home or self-care (01) ==
LOC: HO.LAB 13:49
PROVIDERS: Visit Provider Surgery
DX: B49 Unspecified mycosis (principal); E11.9 Type 2 diabetes mellitus without complications; E28.2 Polycystic ovarian syndrome; E66.01 Morbid (severe) obesity due to excess calories; F17.210 Nicotine dependence, cigarettes, uncomplicated; F41.9 Anxiety disorder, unspecified; I10 Essential (primary) hypertension; R14.0 Abdominal distension (gaseous)
CPT/HCPCS: 36415; 80053; 83036; 85025; 86140; 99202

== ENCOUNTER 2022-12-22 10:08 | Outpatient (REF) | payer OTHER, SELFPAY ==
--- NOTE | ~2022-12-22 | US_ITS ---
EXAMINATION: US VENOUS ULTRASOUND WITH DOPPLER LOWER EXTREMITY, BILATERAL CLINICAL INFORMATION: Leg edema COMPARISON: None available. TECHNIQUE: Ultrasound of the deep veins is performed from the hip to the calf with compression sonography and color and pulse Doppler assessment. Spectral analysis with color-flow imaging is performed. FINDINGS: RIGHT: There is normal venous compression and respiratory variation and augmented flow. The visualized common femoral vein, superficial femoral vein, profunda femoral vein, popliteal vein, and the trifurcation region shows no evidence of deep venous thrombosis. There is no significant popliteal fossa cyst. LEFT: There is normal venous compression and respiratory variation and augmented flow. The visualized common femoral vein, superficial femoral vein, profunda femoral vein, popliteal vein, and the trifurcation region shows no evidence of deep venous thrombosis. There is no significant popliteal fossa cyst. If the patient's symptoms persist, followup ultrasound in 5 days 7 days might be of value to exclude proximal propagation from a non-visualized calf vein. US/US venous duplex LE BI IMPRESSION: No DVT demonstrated in the bilateral lower extremity.
[2022-12-22 12:42] LABS: Appearance Urine Cloudy; Color Urine Yellow; Glucose Urine UA >=1000 mg/dL (Negative); Leukocyte Esterase Urine Moderate (2+) (Negative); Nitrite Urine Negative (Negative); Specific Gravity - Urine 1.015 (1.005-1.025); UMIC TRIGGER UA YES; Urine Blood Negative (Negative); Urine Ketones Negative (Negative); Urine Protein 100 (2+) mg/dL (Neg-Trace)
[2022-12-22 13:03] LABS: Bacteria Urine 1+ (None Seen); RBC Urine 0-2 /HPF (0-2); WBC Urine >50 /HPF (0-5)
[2022-12-22 13:05] LABS: Anion Gap 14 (12-20); Blood Urea Nitrogen 18 mg/dL (9-16); Calcium 8.7 mg/dL (8.4-10.2); Carbon Dioxide 27 mmol/L (22-29); Chloride 99 mmol/L (96-108); Estimated Glomerular Filt Rate 26; Glucose Random 253 mg/dL (60-115); Potassium 4.1 mmol/L (3.3-5.1); Sodium 136 mmol/L (135-145)
[2022-12-22 14:48] LABS: Creatinine Urine 67.14 mg/dL; Microalbum/Creatinine Ratio Ur 924.9 ug/mg cr; Protein/Creatinine Ratio, Ur 1.56 (<0.2); Total Protein Urine Random 105 mg/dL (<12)
== END 2022-12-22 10:09 | disposition home or self-care (01) ==
LOC: HO.US 10:08
PROVIDERS: Absent Provider Internal Medicine Nephrology; PCP Nurse Practitioner Family; Visit Provider Internal Medicine Hypertension Specialist
DX: N18.32 Chronic kidney disease, stage 3b (principal); R60.1 Generalized edema
CPT/HCPCS: 36415; 80048; 81001; 82043; 84156; 93970

== ENCOUNTER 2023-01-19 10:28 | Outpatient (REF) | payer OTHER, SELFPAY ==
--- NOTE | ~2023-01-19 | XR_ITS ---
EXAMINATION: XR TIBIA AND FIBULA, RIGHT CLINICAL INFORMATION: Lower extremity wound, rule out osteomyelitis. COMPARISON: None available. TECHNIQUE: AP and lateral views of the right tibia and fibula were obtained. FINDINGS: The tibia and fibula are intact. There is no acute fracture or dislocation. No cortical erosive changes are seen. Mild soft tissue swelling and edema is seen medially. XR/XR tibia fibula RT 2V IMPRESSION: Mild soft tissue swelling and edema medially without acute underlying osseous abnormality. No overt evidence for osteomyelitis.
== END 2023-01-19 10:29 | disposition home or self-care (01) ==
LOC: HO.XRAY 10:28
PROVIDERS: Visit Provider Physician Assistant
DX: L03.115 Cellulitis of right lower limb (principal)
CPT/HCPCS: 73590

== ENCOUNTER 2023-02-03 09:43 | Outpatient (REF) | payer OTHER, SELFPAY ==
[2023-02-03 10:06] LABS: MANUAL DIFF FLAG NO
[2023-02-03 10:12] LABS: Basophils Percent Auto 0.3 % (0-2); Eosinophils Absolute Auto 0.1 X10*3/uL (0.0-0.4); Eosinophils Percent Auto 0.9 % (0-4); Hematocrit 40.7 % (37.0-47.0); Hemoglobin 12.9 g/dl (12.0-16.0); Imm Gran Abs Auto 0.04 X10*3/uL (0.00-0.03); Imm Gran Pct Auto 0.4 % (0.0-0.4); Lymphocytes Absolute Auto 2.2 X10*3/uL (1.2-4.9); Lymphocytes Percent Auto 22.3 % (20-40); Mean Corpuscular HGB Conc 31.7 g/dl (31.0-35.0); Mean Corpuscular Hemoglobin 27.4 pg (27.0-33.0); Mean Corpuscular Volume 86.4 fL (80.0-98.0); Mean Platelet Volume 10.6 fL (9.4-12.3); Monocytes Absolute Auto 0.5 X10*3/uL (0.1-1.2); Monocytes Percent Auto 4.7 % (2-11); Neutrophils Absolute Auto 7.1 x10*3/uL (2.0-8.3); Neutrophils Percent Auto 71.4 % (45-73); Platelet Count 265 X10*3/uL (160-400); Red Blood Count 4.71 X10*6/uL (4.20-5.50); Red Cell Distribution Width 14.2 % (11.0-16.0)
[2023-02-03 10:19] LABS: INTERNATIONAL NORM RATIO 0.9 (0.9-1.1); Prothrombin Time 10.3 SEC (10.0-13.1)
[2023-02-03 10:41] LABS: Anion Gap 16 (12-20); Blood Urea Nitrogen 19 mg/dL (9-16); Calcium 8.9 mg/dL (8.4-10.2); Carbon Dioxide 27 mmol/L (22-29); Chloride 97 mmol/L (96-108); Estimated Glomerular Filt Rate 30; Potassium 4.2 mmol/L (3.3-5.1); Sodium 136 mmol/L (135-145)
[2023-02-03 10:57] LABS: Appearance Urine Clear; Color Urine Yellow; Glucose Urine UA >=1000 mg/dL (Negative); Leukocyte Esterase Urine Trace (Negative); Nitrite Urine Negative (Negative); Specific Gravity - Urine 1.015 (1.005-1.025); UMIC TRIGGER UA YES; Urine Blood Trace (Negative); Urine Ketones Negative (Negative); Urine Protein 100 (2+) mg/dL (Neg-Trace)
[2023-02-03 11:00] LABS: Bacteria Urine Trace (None Seen); Hyaline Casts Urine 0-2 /LPF (0-2); RBC Urine 0-2 /HPF (0-2); WBC Urine 21-50 /HPF (0-5)
[2023-02-06 19:28] LABS: Complement C3 138 mg/dL (83-193)
[2023-02-07 14:33] LABS: Neutrophil Cyto Ab Screen NEGATIVE (NEGATIVE)
[2023-02-07 15:53] LABS: Anti Nuclear Antibody Screen NEGATIVE (NEGATIVE)
== END 2023-02-03 09:44 | disposition home or self-care (01) ==
LOC: HO.LAB 09:43
PROVIDERS: Visit Provider Internal Medicine Hypertension Specialist
DX: N18.32 Chronic kidney disease, stage 3b (principal)
CPT/HCPCS: 36415; 80051; 81001; 82310; 82565; 84520; 85025; 85610; 86036; 86038; 86160; 87086

== ENCOUNTER 2023-05-11 10:37 | Outpatient (REF) | payer OTHER, SELFPAY ==
[2023-05-11 11:14] LABS: Hematocrit 41.4 % (37.0-47.0); Hemoglobin 13.5 g/dl (12.0-16.0); Mean Corpuscular HGB Conc 32.6 g/dl (31.0-35.0); Mean Corpuscular Hemoglobin 27.4 pg (27.0-33.0); Platelet Count 220 X10*3/uL (160-400); Red Blood Count 4.93 X10*6/uL (4.20-5.50); Red Cell Distribution Width 14.6 % (11.0-16.0)
[2023-05-11 11:48] LABS: Anion Gap 13 (12-20); Blood Urea Nitrogen 22 mg/dL (9-16); Calcium 9.5 mg/dL (8.4-10.2); Carbon Dioxide 29 mmol/L (22-29); Chloride 99 mmol/L (96-108); Estimated Glomerular Filt Rate 26; Glucose Random 299 mg/dL (60-115); Potassium 4.9 mmol/L (3.3-5.1); Sodium 136 mmol/L (135-145)
== END 2023-05-11 10:38 | disposition home or self-care (01) ==
LOC: HO.LAB 10:37
PROVIDERS: PCP Nurse Practitioner Family; Visit Provider Internal Medicine Hypertension Specialist
DX: N18.32 Chronic kidney disease, stage 3b (principal)
CPT/HCPCS: 36415; 80048; 85027

== ENCOUNTER 2023-06-27 11:06 | Outpatient (REF) | payer OTHER, SELFPAY ==
[2023-06-27 13:10] LABS: Anion Gap 18 (12-20); Blood Urea Nitrogen 37 mg/dL (9-16); Calcium 9.5 mg/dL (8.4-10.2); Carbon Dioxide 29 mmol/L (22-29); Chloride 91 mmol/L (96-108); Estimated Glomerular Filt Rate 18; Potassium 3.5 mmol/L (3.3-5.1); Sodium 134 mmol/L (135-145)
== END 2023-06-27 11:07 | disposition home or self-care (01) ==
LOC: HO.LAB 11:06
PROVIDERS: PCP Nurse Practitioner Family; Visit Provider Internal Medicine Hypertension Specialist
DX: N18.32 Chronic kidney disease, stage 3b (principal); N39.0 Urinary tract infection, site not specified
CPT/HCPCS: 36415; 80051; 82310; 82565; 84520; 87086

== ENCOUNTER 2023-09-07 12:04 | Outpatient (REF) | payer OTHER, SELFPAY ==
[2023-09-07 13:52] LABS: Alanine Aminotransferase 29 U/L (0-31); Albumin Level 3.7 g/dL (3.5-5.0); Alkaline Phosphatase 76 U/L (39-117); Anion Gap 13 (12-20); Aspartate Amino Transferase 28 U/L (5-31); Bilirubin Total 0.4 mg/dL (0.0-1.0); Blood Urea Nitrogen 35 mg/dL (9-16); Calcium 9.2 mg/dL (8.4-10.2); Carbon Dioxide 29 mmol/L (22-29); Chloride 94 mmol/L (96-108); Estimated Glomerular Filt Rate 18; Glucose Random 335 mg/dL (60-115); Potassium 3.4 mmol/L (3.3-5.1); Sodium 133 mmol/L (135-145); Total Protein 7.9 g/dL (6.5-8.0)
== END 2023-09-07 12:05 | disposition home or self-care (01) ==
LOC: HO.LAB 12:04
PROVIDERS: PCP Nurse Practitioner Family; Visit Provider Internal Medicine Hypertension Specialist
DX: I12.9 Hypertensive chronic kidney disease with stage 1 through stage 4 chronic kidney disease, or unspecified chronic kidney disease (principal); N18.30 Chronic kidney disease, stage 3 unspecified; R14.0 Abdominal distension (gaseous)
CPT/HCPCS: 36415; 80053; 99212

== ENCOUNTER 2023-09-07 12:04 | Outpatient (AMB) | payer OTHER, SELFPAY ==
--- NOTE | 2023-09-07 12:05 | HO.NEPHOV ---
HPI HPI Comments History of Present Illness Details 47-year-old woman with multiple medical problems with chronic leg ulcers and CKD. In the past serologies and ANCA titers were normal. She had sustained acute kidney injury which is resolved and she continues her chronic disease the baseline creatinine around 2 mg/dL. Eccentric is complaining of right-sided abdominal pain. Abdomen is bloated. She does have some constipation. PFSH Medical History Hx of blood transfusion reaction Fungus ball Hernia PCOS (polycystic ovarian syndrome) Anxiety HTN (hypertension) Diabetes Surgical History Hx of cholecystectomy S/P discectomy for herniated nucleus pulposus H/O shoulder surgery History of mandibular surgery H/O oral surgery H/O brain surgery Family History Father Diabetes HTN (hypertension) Mother Diabetes HTN (hypertension) CAD (coronary artery disease) Social History (Updated 09/07/23 @ 12:12 by Pina Guzman MA) Household Members Other:: female partner Housing: Apartment Alcohol intake: never Patient Tobacco Use Status: Former Tobacco user Tobacco use type: Cigarette Cigarettes Per Day: 10 Years Smoked: 30 Use of substances other than those prescribed or required for medical reasons: Yes Substance Use Type: Marijuana Vital Signs 09/07/23 12:07 Height 6 ft Weight 264 lb BMI 35.8 BP 146/94 H Blood Pressure Location Lt brachial Position Sitting Pulse 104 H Pulse Source Pulse Oximeter Pulse Oximetry (%) 96 Oxygen Delivery Method Room Air Physical Exam Vital Signs: Last Vital Signs Pulse 104 H 09/07/23 12:07 BP 146/94 H 09/07/23 12:07 Pulse Ox 96 09/07/23 12:07 Oxygen Delivery Method Room Air 09/07/23 12:07 BMI result Body Mass Index 35.8 Const General: comfortable Nutritional Appearance: well nourished Orientation/consciousness: patient oriented x3 HEENT Head: No normal to inspection Mouth: moist mucous membranes Neck Neck: Yes supple and Yes no JVD Resp Auscultation: clear to auscultation bilaterally, no rales and rub present Cardio Jugular venous distension: no JVD Palpation: no palpable S3 and no palpable S4 Heart sounds: no rubs GI Inspection: Yes distended Palpation (GI): Soft to palpation and nontender Percussion: No Fluid wave present General: Yes no CVA tenderness Back/Spine/Pelvis Back: no CVA tenderness Skin Wounds: wounds noted Neuro General: patient oriented x3 Extrem General: Yes no pedal edema, No clubbing and Yes edema Assessment & Plan Assessment & Plan (1) CKD (chronic kidney disease) stage 3, GFR 30-59 ml/min: Code(s): N18.30 - Chronic kidney disease, stage 3 unspecified (2) Abdominal distension: Code(s): R14.0 - Abdominal distension (gaseous) (3) HTN (hypertension): Code(s): I10 - Essential (primary) hypertension Plan History of NEISHA superimposed on CKD. Last creatinine was from June. Will recheck renal panel today. Given the right-sided abdominal pain obtain abdominal sonogram and check LFTs as well. She continues her leg edema. I will discontinue amlodipine 5 mg and increase hydralazine from 50 mg t.i.d. up to 75 mg t.i.d. Orders: Orders US abdomen complete Today N18.30 - Chronic kidney disease, stage 3 unspecified, R14.0 - Abdominal distension (gaseous) Comprehensive Met. Panel Today N18.30 - Chronic kidney disease, stage 3 unspecified, R14.0 - Abdominal distension (gaseous) Medications: New hydralazine 75 mg (3 x 25 mg) PO TID 90 tabs 1RF hydralazine 75 mg (3 x 25 mg) PO TID 90 tabs 1RF Coding Level of Care Code Est Pt Level 4 (23493) Diagnoses CKD (chronic kidney disease) stage 3, GFR 30-59 ml/min N18.30 Abdominal distension R14.0 HTN (hypertension) I10 Results Reviewed Nephrology Results: Hgb 13.5 g/dl (12.0-16.0) 05/11/23 WBC 8.0 X10*3/uL (4.8-10.8) 05/11/23 Plt Count 220 X10*3/uL (160-400) 05/11/23 Sodium 134 mmol/L (135-145) L 06/27/23 Potassium 3.5 mmol/L (3.3-5.1) 06/27/23 Chloride 91 mmol/L (96-108) L 06/27/23 Carbon Dioxide 29 mmol/L (22-29) 06/27/23 BUN 37 mg/dL (9-16) H 06/27/23 Creatinine 2.85 mg/dL (0.5-1.4) H 06/27/23 Calcium 9.5 mg/dL (8.4-10.2) 06/27/23 Urine Protein 100 (2+) mg/dL (Neg-Trace) H 02/03/23 Urine Creatinine 67.14 mg/dL 12/22/22 Protein/Creatinin Ratio 1.56 (<0.2) H 12/22/22
[2023-09-07 12:07] VITALS: BP 146/94; PULSE 104; O2SAT 96; BMI 35.8
== END 2023-09-07 12:30 | disposition home or self-care (01) ==
PROVIDERS: PCP Nurse Practitioner Family; Visit Provider Internal Medicine Hypertension Specialist
DX: N18.30 Chronic kidney disease, stage 3 unspecified (principal); R14.0 Abdominal distension (gaseous); I10 Essential (primary) hypertension
CPT/HCPCS: 99214

== ENCOUNTER 2023-10-16 11:03 | Outpatient (AMB) | payer OTHER, SELFPAY ==
[2023-10-16 11:13] VITALS: BP 160/90
--- NOTE | 2023-10-16 11:13 | HO.NEPHOV ---
HPI HPI Comments History of Present Illness Details 47-year-old woman with multiple medical problems with chronic leg ulcers and CKD. In the past serologies and ANCA titers were normal. She had sustained acute kidney injury which is resolved and she continues her chronic disease the baseline creatinine around 2 mg/dL. She is complaining of right-sided abdominal pain. Abdomen is bloated. She does have some constipation. USG pending [facility] Medical History Hx of blood transfusion reaction Fungus ball Hernia PCOS (polycystic ovarian syndrome) Anxiety HTN (hypertension) Diabetes Surgical History Hx of cholecystectomy S/P discectomy for herniated nucleus pulposus H/O shoulder surgery History of mandibular surgery H/O oral surgery H/O brain surgery Family History Father Diabetes HTN (hypertension) Mother Diabetes HTN (hypertension) CAD (coronary artery disease) Social History Household Members Other:: female partner Housing: Apartment Alcohol intake: never Patient Tobacco Use Status: Former Tobacco user Tobacco use type: Cigarette Cigarettes Per Day: 10 Years Smoked: 30 Substance Use Type: Marijuana Vital Signs 10/16/23 11:13 Height 6 ft BP 160/90 H Blood Pressure Location Rt brachial Position Sitting Physical Exam Vital Signs: Last Vital Signs BP 160/90 H 10/16/23 11:13 Const General: comfortable Nutritional Appearance: well nourished Orientation/consciousness: patient oriented x3 HEENT Head: No normal to inspection Mouth: moist mucous membranes Neck Neck: Yes supple and Yes no JVD Resp Auscultation: clear to auscultation bilaterally, no rales and rub present Cardio Jugular venous distension: no JVD Palpation: no palpable S3 and no palpable S4 Heart sounds: no rubs GI Inspection: Yes distended Palpation (GI): Soft to palpation and nontender Percussion: No Fluid wave present General: Yes no CVA tenderness Back/Spine/Pelvis Back: no CVA tenderness Skin Wounds: wounds noted Neuro General: patient oriented x3 Extrem General: Yes no pedal edema, No clubbing and Yes edema Assessment & Plan Assessment & Plan (1) CKD (chronic kidney disease) stage 3, GFR 30-59 ml/min: Code(s): N18.30 - Chronic kidney disease, stage 3 unspecified (2) Abdominal distension: Code(s): R14.0 - Abdominal distension (gaseous) (3) HTN (hypertension): Code(s): I10 - Essential (primary) hypertension Plan History of NEISHA superimposed on CKD. Last creatinine was from June. Will recheck renal panel today. Given the right-sided abdominal pain obtain abdominal sonogram and check LFTs as well. Reordered She continues her leg edema. Resume MEtolazone 5 mg QD I have discontinue amlodipine 5 mg and Keep hydralazine from 50 mg t.i.d. Orders: Orders Comprehensive Met. Panel Today N18.30 - Chronic kidney disease, stage 3 unspecified Complete Blood Count Auto Diff Today N18.30 - Chronic kidney disease, stage 3 unspecified Medications: New furosemide (Lasix) 40 mg PO DAILY 30 tabs 3RF metolazone 5 mg PO DAILY 30 tabs 0RF Coding Level of Care Code Est Pt Level 4 (95622) Diagnoses CKD (chronic kidney disease) stage 3, GFR 30-59 ml/min N18.30 Abdominal distension R14.0 HTN (hypertension) I10 Results Reviewed Nephrology Results: Hgb 13.5 g/dl (12.0-16.0) 05/11/23 WBC 8.0 X10*3/uL (4.8-10.8) 05/11/23 Plt Count 220 X10*3/uL (160-400) 05/11/23 Sodium 133 mmol/L (135-145) L 09/07/23 Potassium 3.4 mmol/L (3.3-5.1) 09/07/23 Chloride 94 mmol/L (96-108) L 09/07/23 Carbon Dioxide 29 mmol/L (22-29) 09/07/23 BUN 35 mg/dL (9-16) H 09/07/23 Creatinine 2.83 mg/dL (0.5-1.4) H 09/07/23 Calcium 9.2 mg/dL (8.4-10.2) 09/07/23 Urine Protein 100 (2+) mg/dL (Neg-Trace) H 02/03/23
== END 2023-10-16 11:37 | disposition home or self-care (01) ==
PROVIDERS: PCP Nurse Practitioner Family; Visit Provider Internal Medicine Hypertension Specialist
DX: N18.30 Chronic kidney disease, stage 3 unspecified (principal); R14.0 Abdominal distension (gaseous); I10 Essential (primary) hypertension
CPT/HCPCS: 99214

== ENCOUNTER → 2023-10-16 11:03 | Outpatient (BNVA) | payer OTHER, SELFPAY | PROVIDERS: PCP Nurse Practitioner Family; Visit Provider Internal Medicine Hypertension Specialist | DX: I12.9 Hypertensive chronic kidney disease with stage 1 through stage 4 chronic kidney disease, or unspecified chronic kidney disease (principal); N18.30 Chronic kidney disease, stage 3 unspecified; R14.0 Abdominal distension (gaseous) | CPT/HCPCS: 99212 ==

== ENCOUNTER 2023-10-16 11:49 | Outpatient (REF) | payer OTHER, SELFPAY ==
[2023-10-16 13:28] LABS: MANUAL DIFF FLAG NO
[2023-10-16 13:36] LABS: Basophils Percent Auto 0.4 % (0-2); Eosinophils Absolute Auto 0.1 X10*3/uL (0.0-0.4); Eosinophils Percent Auto 1.4 % (0-4); Hematocrit 35.5 % (37.0-47.0); Hemoglobin 12.2 g/dl (12.0-16.0); Imm Gran Abs Auto 0.03 X10*3/uL (0.00-0.03); Imm Gran Pct Auto 0.4 % (0.0-0.4); Lymphocytes Absolute Auto 1.9 X10*3/uL (1.2-4.9); Lymphocytes Percent Auto 24.3 % (20-40); Mean Corpuscular HGB Conc 34.4 g/dl (31.0-35.0); Mean Corpuscular Hemoglobin 29.9 pg (27.0-33.0); Mean Platelet Volume 11.2 fL (9.4-12.3); Monocytes Absolute Auto 0.5 X10*3/uL (0.1-1.2); Monocytes Percent Auto 6.1 % (2-11); Neutrophils Absolute Auto 5.3 x10*3/uL (2.0-8.3); Neutrophils Percent Auto 67.4 % (45-73); Platelet Count 218 X10*3/uL (160-400); Red Blood Count 4.08 X10*6/uL (4.20-5.50); Red Cell Distribution Width 13.7 % (11.0-16.0); White Blood Count 7.9 X10*3/uL (4.8-10.8)
[2023-10-16 13:43] LABS: Alanine Aminotransferase 20 U/L (0-31); Albumin Level 3.4 g/dL (3.5-5.0); Alkaline Phosphatase 60 U/L (39-117); Anion Gap 13 (12-20); Aspartate Amino Transferase 23 U/L (5-31); Bilirubin Total 0.3 mg/dL (0.0-1.0); Blood Urea Nitrogen 21 mg/dL (9-16); Calcium 8.8 mg/dL (8.4-10.2); Carbon Dioxide 26 mmol/L (22-29); Chloride 99 mmol/L (96-108); Estimated Glomerular Filt Rate 27; Glucose Random 291 mg/dL (60-115); Potassium 3.7 mmol/L (3.3-5.1); Sodium 134 mmol/L (135-145); Total Protein 7.3 g/dL (6.5-8.0)
== END 2023-10-16 11:50 | disposition home or self-care (01) ==
LOC: HO.10HDL 11:49
PROVIDERS: Visit Provider Internal Medicine Hypertension Specialist
DX: N18.30 Chronic kidney disease, stage 3 unspecified (principal)
CPT/HCPCS: 36415; 80053; 85025

== ENCOUNTER 2024-01-05 08:04 | Outpatient (REF) | payer OTHER, SELFPAY ==
--- NOTE | ~2024-01-05 | US_ITS ---
EXAMINATION: US ABDOMEN COMPLETE CLINICAL INFORMATION: Abdominal distention (gaseous). COMPARISON: Renal ultrasound 03/11/2022. TECHNIQUE: Real-time imaging of the abdominal viscera. Technically difficult study secondary to bowel gas and body habitus. FINDINGS: PANCREAS: Obscured by bowel gas. ABDOMINAL AORTA: The proximal, mid, and distal segments are normal in caliber. INFERIOR VENA CAVA: Visualized portions are normal. LIVER: The liver is enlarged measuring 21 cm. The liver contour is normal. There is diffuse increased liver parenchymal echogenicity, consistent with hepatic steatosis. No focal hepatic lesion. There is no intrahepatic biliary duct dilatation seen. GALLBLADDER: Surgically absent. COMMON BILE DUCT: Normal in caliber measuring 0.8 cm in diameter. RIGHT KIDNEY: Normal. No hydronephrosis. No renal calculi or focal parenchymal lesions. The kidney measures 11.2 cm in maximum dimension. LEFT KIDNEY: Normal. No hydronephrosis. No renal calculi or focal parenchymal lesions. The kidney measures 12.0 cm in maximum dimension. SPLEEN: Normal. The spleen measures 12.7 cm in maximum dimension. FREE FLUID: None. US/US abdomen complete IMPRESSION: Enlarged steatotic liver. Nonvisualization of the pancreas due to bowel gas.
== END 2024-01-05 08:05 | disposition home or self-care (01) ==
LOC: HO.US 08:04
PROVIDERS: PCP Nurse Practitioner Family; Visit Provider Internal Medicine Hypertension Specialist
DX: R14.0 Abdominal distension (gaseous) (principal); N18.30 Chronic kidney disease, stage 3 unspecified
CPT/HCPCS: 76700

== ENCOUNTER 2024-01-09 08:43 | Outpatient (AMB) | payer OTHER, SELFPAY ==
--- NOTE | 2024-01-09 08:44 | HO.NEPHOV ---
HPI HPI Comments History of Present Illness Details 47-year-old woman with multiple medical problems with chronic leg ulcers and CKD. In the past serologies and ANCA titers were normal. She had sustained acute kidney injury which is resolved and she continues her chronic disease the baseline creatinine around 2 mg/dL. She is complaining of right-sided abdominal pain. Abdomen is bloated. She does have some constipation. Nexium has been ordered USG results pending Still with edema even after lowering Amlodipine On Metolazone 2 x week and Lasix 40 mg daily PFSH Medical History Hx of blood transfusion reaction Fungus ball Hernia PCOS (polycystic ovarian syndrome) Anxiety HTN (hypertension) Diabetes Surgical History Hx of cholecystectomy S/P discectomy for herniated nucleus pulposus H/O shoulder surgery History of mandibular surgery H/O oral surgery H/O brain surgery Family History Father Diabetes HTN (hypertension) Mother Diabetes HTN (hypertension) CAD (coronary artery disease) Social History Household Members Other:: female partner Housing: Apartment Alcohol intake: never Patient Tobacco Use Status: Former Tobacco user Tobacco use type: Cigarette Cigarettes Per Day: 10 Years Smoked: 30 Substance Use Type: Marijuana Vital Signs 01/09/24 08:45 Height 6 ft Weight 272 lb BMI 36.9 BP 130/82 Blood Pressure Location Lt brachial Position Sitting Pulse 104 H Pulse Source Pulse Oximeter Pulse Oximetry (%) 98 Oxygen Delivery Method Room Air Physical Exam Vital Signs: Last Vital Signs BP 130/82 01/09/24 08:45 BMI result Body Mass Index 36.9 Const General: comfortable Nutritional Appearance: well nourished Orientation/consciousness: patient oriented x3 HEENT Head: No normal to inspection Mouth: moist mucous membranes Neck Neck: Yes supple and Yes no JVD Resp Auscultation: clear to auscultation bilaterally, no rales and rub present Cardio Jugular venous distension: no JVD Palpation: no palpable S3 and no palpable S4 Heart sounds: no rubs GI Inspection: Yes distended Palpation (GI): Soft to palpation and nontender Percussion: No Fluid wave present General: Yes no CVA tenderness Back/Spine/Pelvis Back: no CVA tenderness Skin Wounds: wounds noted Neuro General: patient oriented x3 Extrem General: No clubbing and Yes edema Left upper extremity: abnormal capillary refill Assessment & Plan Assessment & Plan (1) CKD (chronic kidney disease) stage 3, GFR 30-59 ml/min: Code(s): N18.30 - Chronic kidney disease, stage 3 unspecified (2) Abdominal distension: Code(s): R14.0 - Abdominal distension (gaseous) (3) HTN (hypertension): Code(s): I10 - Essential (primary) hypertension Plan History of NEISHA superimposed on CKD. Last creatinine was from Oct 2023 is 1.9 Will recheck renal panel today. She continues to have leg edema. Metolazone 5 mg QD Hold off amlodipine due to edema and Keep Hydralazine from 50 mg t.i.d. BP better controlled Low salt diet Await surgical evaluation DM - Blood sugar is sub optimal Needs better control Follow up with Endocrine Orders: Orders Complete Blood Count Auto Diff Today N18.30 - Chronic kidney disease, stage 3 unspecified Comprehensive Met. Panel Today N18.9 - Chronic kidney disease, unspecified Coding Level of Care Code Est Pt Level 4 (18958) Diagnoses CKD (chronic kidney disease) stage 3, GFR 30-59 ml/min N18.30 Abdominal distension R14.0 HTN (hypertension) I10 Results Reviewed Nephrology Results: Hgb 12.2 g/dl (12.0-16.0) 10/16/23 WBC 7.9 X10*3/uL (4.8-10.8) 10/16/23 Plt Count 218 X10*3/uL (160-400) 10/16/23 Sodium 134 mmol/L (135-145) L 10/16/23 Potassium 3.7 mmol/L (3.3-5.1) 10/16/23 Chloride 99 mmol/L (96-108) 10/16/23 Carbon Dioxide 26 mmol/L (22-29) 10/16/23 BUN 21 mg/dL (9-16) H 10/16/23 Creatinine 1.94 mg/dL (0.5-1.4) H 10/16/23 Calcium 8.8 mg/dL (8.4-10.2) 10/16/23
[2024-01-09 08:45] VITALS: BP 130/82; PULSE 104; O2SAT 98; BMI 36.9
== END 2024-01-09 09:23 | disposition home or self-care (01) ==
PROVIDERS: PCP Nurse Practitioner Family; Visit Provider Internal Medicine Hypertension Specialist
DX: N18.30 Chronic kidney disease, stage 3 unspecified (principal); R14.0 Abdominal distension (gaseous); I10 Essential (primary) hypertension
CPT/HCPCS: 99214

== ENCOUNTER → 2024-01-09 08:43 | Outpatient (BNVA) | payer OTHER, SELFPAY | PROVIDERS: PCP Nurse Practitioner Family; Visit Provider Internal Medicine Hypertension Specialist | DX: N18.30 Chronic kidney disease, stage 3 unspecified (principal); R14.0 Abdominal distension (gaseous); I10 Essential (primary) hypertension; R60.9 Edema, unspecified | CPT/HCPCS: 99212 ==

== ENCOUNTER 2024-05-27 13:48 | Outpatient (AMB) | payer OTHER, SELFPAY ==
[2024-05-27 14:00] VITALS: BP 146/94; PULSE 101; O2SAT 92; BMI 38.0
--- NOTE | 2024-05-27 14:00 | HO.NEPHOV_ITS ---
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 Accompanied by: Spouse Allergies prednisone Allergy (Severe, Verified 05/27/24 14:02) vaginal bleeding Iodine and Iodide Containing Produc Allergy (Intermediate, Verified 05/27/24 14:02) Rash adhesive tape Allergy (Verified 05/27/24 14:02) Rash amlodipine Allergy (Verified 05/27/24 14:02) Swelling Medication List - Last Reconciled 05/27/24 by Stanley Holden MD albuterol sulfate 90 mcg/actuation (Ventolin HFA) inhalation alum-mag hydroxide-simeth 400-400-40 mg/5 mL (Antacid Plus Anti-Gas) mL PO cholecalciferol (vitamin D3) 25 mcg PO DAILY cholecalciferol (vitamin D3) PO cyclobenzaprine 10 mg PO TID esomeprazole magnesium 20 mg PO DAILY famotidine 20 mg PO BID ferrous fumarate 325 mg PO DAILY ferrous sulfate 325 mg PO DAILY flash glucose sensor (FreeStyle Jose 2 Sensor kit) As directed furosemide 40 mg PO DAILY hydralazine 50 mg PO TID insulin aspart U-100 subcut insulin glargine (Lantus Solostar U-100 Insulin) units subcut insulin glargine (Lantus U-100 Insulin) 72 units subcut ONCE insulin lispro 1 sliding scale dose subcut USEASDIRECTD lactulose mL PO BID metolazone 2.5 mg PO 2XW ondansetron HCl 4 mg PO Q8H PRN quetiapine (Seroquel) 300 mg PO BEDTIME quetiapine (Seroquel) 50 mg PO DAILY sennosides (senna) 8.6 mg PO BID sennosides (senna) 17.2 mg PO DAILY thiamine HCl (vitamin B1) 100 mg PO DAILY valsartan 40 mg PO DAILY HPI Comments Details: 47-year-old woman with multiple medical problems with chronic leg ulcers and CKD. In the past serologies and ANCA titers were normal. She had sustained acute kidney injury which is resolved and she continues her chronic disease the baseline creatinine around 2 mg/dL. She is complaining of right-sided abdominal pain. Abdomen is bloated. She does have some constipation. Nexium has been ordered USG results pending Still with edema even after lowering Amlodipine On Metolazone 2 x week and Lasix 40 mg daily 05/27/24 Gained weight On Lasix 40 mg QD with MEtolazone 2.5 mg 2x week Diagnosed with diab retinopathy [facility] Medical History Hx of blood transfusion reaction Fungus ball Hernia PCOS (polycystic ovarian syndrome) Anxiety HTN (hypertension) Diabetes Surgical History Hx of cholecystectomy S/P discectomy for herniated nucleus pulposus H/O shoulder surgery History of mandibular surgery H/O oral surgery H/O brain surgery Family History Father Diabetes HTN (hypertension) Mother Diabetes HTN (hypertension) CAD (coronary artery disease) Social History Household Members Other:: female partner Housing: Apartment Alcohol intake: never Patient Tobacco Use Status: Former Tobacco user Tobacco use type: Cigarette Cigarettes Per Day: 10 Years Smoked: 30 Substance Use Type: Marijuana Physical Exam Vital Signs: Last Vital Signs Pulse 101 H 05/27/24 14:00 BP 146/94 H 05/27/24 14:00 Pulse Ox 92 05/27/24 14:00 Oxygen Delivery Method Room Air 05/27/24 14:00 BMI result Body Mass Index 38.0 Results Reviewed Nephrology Results: Hgb 12.2 g/dl (12.0-16.0) 10/16/23 WBC 7.9 X10*3/uL (4.8-10.8) 10/16/23 Plt Count 218 X10*3/uL (160-400) 10/16/23 Sodium 134 mmol/L (135-145) L 10/16/23 Potassium 3.7 mmol/L (3.3-5.1) 10/16/23 Chloride 99 mmol/L (96-108) 10/16/23 Carbon Dioxide 26 mmol/L (22-29) 10/16/23 BUN 21 mg/dL (9-16) H 10/16/23 Creatinine 1.94 mg/dL (0.5-1.4) H 10/16/23 Calcium 8.8 mg/dL (8.4-10.2) 10/16/23 Assessment & Plan Assessment & Plan (1) Fungus ball: Comment: She has some right flank complaints. She has no dysuria Code(s): B49 - Unspecified mycosis Category: Medical (2) CKD (chronic kidney disease) stage 3, GFR 30-59 ml/min: Code(s): N18.30 - Chronic kidney disease, stage 3 unspecified Category: Medical (3) Abdominal distension: Code(s): R14.0 - Abdominal distension (gaseous) Category: Medical (4) HTN (hypertension): Code(s): I10 - Essential (primary) hypertension Category: Medical Plan History of NEISHA superimposed on CKD. NEISHA superimposed on CKD. Creatinine is bumped up probably from natural progression She continues to have leg edema. Metolazone 5 mg QD Increase Lasix to 40 mg b.i.d. due to worsening edema Hold off amlodipine due to edema and Keep Hydralazine from 50 mg t.i.d. BP better controlled Low salt diet Waiting for colonoscopy followed by surgical evaluation. DM - Blood sugar is sub optimal Needs better control Follow up with Endocrine Upon her request request I will referred to Infectious Disease for follow-up regarding the fungal ball Orders: Orders Basic Metabolic Panel 1 Week N18.30 - Chronic kidney disease, stage 3 unspecified Neutrophil Cytoplasma Ab 1 Week N18.30 - Chronic kidney disease, stage 3 unspecified Complement C3 1 Week N18.30 - Chronic kidney disease, stage 3 unspecified Complement C4 1 Week N18.30 - Chronic kidney disease, stage 3 unspecified Immunofixation Pnl, Serum 1 Week N18.30 - Chronic kidney disease, stage 3 unspecified UA and rflx microscopic Today B49 - Unspecified mycosis, N18.30 - Chronic kidney disease, stage 3 unspecified Myeloperoxidase Antibody 1 Week N18.30 - Chronic kidney disease, stage 3 unspecified Proteinase 3 PR3 Antibodies 1 Week N18.30 - Chronic kidney disease, stage 3 unspecified Anti Glomerular Basement Memb 1 Week N18.30 - Chronic kidney disease, stage 3 unspecified Referrals Infectious Disease Referral B49 - Unspecified mycosis Medications: New hydralazine 50 mg PO TID 270 tabs 1RF Changed From furosemide 40 mg PO DAILY 90 tabs 1RF To furosemide 40 mg PO BID 180 tabs 1RF Coding Level of Care Code Est Pt Level 4 (03953) Diagnoses Fungus ball B49 CKD (chronic kidney disease) stage 3, GFR 30-59 ml/min N18.30 Abdominal distension R14.0 HTN (hypertension) I10
== END 2024-05-27 14:24 | disposition home or self-care (01) ==
PROVIDERS: PCP Nurse Practitioner Family; Visit Provider Internal Medicine Hypertension Specialist
DX: B49 Unspecified mycosis (principal); N18.30 Chronic kidney disease, stage 3 unspecified; R14.0 Abdominal distension (gaseous); I10 Essential (primary) hypertension
CPT/HCPCS: 99214

== ENCOUNTER → 2024-05-27 13:48 | Outpatient (BNVA) | payer OTHER, SELFPAY | PROVIDERS: PCP Nurse Practitioner Family; Visit Provider Internal Medicine Hypertension Specialist | DX: I12.9 Hypertensive chronic kidney disease with stage 1 through stage 4 chronic kidney disease, or unspecified chronic kidney disease (principal); N18.30 Chronic kidney disease, stage 3 unspecified; R14.0 Abdominal distension (gaseous); R63.5 Abnormal weight gain; B49 Unspecified mycosis | CPT/HCPCS: 99212 ==

== ENCOUNTER 2024-06-10 13:08 | Outpatient (REF) | payer OTHER, SELFPAY ==
[2024-06-10 13:43] LABS: MANUAL DIFF FLAG NO
[2024-06-10 13:53] LABS: Basophils Percent Auto 0.5 % (0-2); Eosinophils Absolute Auto 0.2 X10*3/uL (0.0-0.4); Hematocrit 39.2 % (37.0-47.0); Imm Gran Abs Auto 0.04 X10*3/uL (0.00-0.03); Imm Gran Pct Auto 0.5 % (0.0-0.4); Lymphocytes Absolute Auto 2.1 X10*3/uL (1.2-4.9); Lymphocytes Percent Auto 28.3 % (20-40); Mean Corpuscular HGB Conc 33.2 g/dl (31.0-35.0); Mean Corpuscular Hemoglobin 29.7 pg (27.0-33.0); Mean Corpuscular Volume 89.5 fL (80.0-98.0); Mean Platelet Volume 10.9 fL (9.4-12.3); Monocytes Absolute Auto 0.5 X10*3/uL (0.1-1.2); Monocytes Percent Auto 6.5 % (2-11); Neutrophils Absolute Auto 4.6 x10*3/uL (2.0-8.3); Neutrophils Percent Auto 62.2 % (45-73); Platelet Count 203 X10*3/uL (160-400); Red Blood Count 4.38 X10*6/uL (4.20-5.50); Red Cell Distribution Width 14.6 % (11.0-16.0); White Blood Count 7.4 X10*3/uL (4.8-10.8)
[2024-06-10 14:33] LABS: Alanine Aminotransferase 43 U/L (0-31); Albumin Level 3.5 g/dL (3.5-5.0); Alkaline Phosphatase 74 U/L (39-117); Anion Gap 14 (12-20); Aspartate Amino Transferase 47 U/L (5-31); Bilirubin Total 0.3 mg/dL (0.0-1.0); Blood Urea Nitrogen 18 mg/dL (9-16); Calcium 9.1 mg/dL (8.4-10.2); Carbon Dioxide 25 mmol/L (22-29); Chloride 104 mmol/L (96-108); Estimated Glomerular Filt Rate 27; Glucose Random 222 mg/dL (60-115); Potassium 4.2 mmol/L (3.3-5.1); Sodium 139 mmol/L (135-145); Total Protein 7.2 g/dL (6.5-8.0)
[2024-06-10 15:29] LABS: Appearance Urine Clear; Color Urine Yellow; Glucose Urine UA 500 mg/dL (Negative); Leukocyte Esterase Urine Small (1+) (Negative); Nitrite Urine Negative (Negative); Specific Gravity - Urine 1.015 (1.005-1.025); UMIC TRIGGER UA YES; Urine Blood Negative (Negative); Urine Ketones Negative (Negative); Urine Protein 300 (3+) mg/dL (Neg-Trace)
[2024-06-10 15:34] LABS: Bacteria Urine None Seen (None Seen); Hyaline Casts Urine 0-2 /LPF (0-2); RBC Urine 0-2 /HPF (0-2); WBC Urine >50 /HPF (0-5)
[2024-06-11 14:28] LABS: Complement C3 153 mg/dL (83-193)
[2024-06-11 15:48] LABS: IgA 238 mg/dL (47-310); IgG 1324 mg/dL (600-1640); IgM 368 mg/dL (50-300)
[2024-06-11 19:39] LABS: Anti Glomerular Basement Memb <1.0 AI; Myeloperoxidase Antibody <1.0 AI; Proteinase 3 PR3 Antibodies <1.0 AI
[2024-06-12 13:54] LABS: Neutrophil Cyto Ab Screen NEGATIVE (NEGATIVE)
== END 2024-06-10 13:09 | disposition home or self-care (01) ==
LOC: HO.LAB 13:08
PROVIDERS: PCP Nurse Practitioner Family; Visit Provider Internal Medicine Hypertension Specialist
DX: N18.30 Chronic kidney disease, stage 3 unspecified (principal); N18.9 Chronic kidney disease, unspecified
CPT/HCPCS: 36415; 80053; 81001; 82784; 83520; 85025; 86021; 86036; 86160; 86334

== ENCOUNTER 2024-06-26 11:29 | Outpatient (AMB) | payer OTHER, SELFPAY ==
--- NOTE | 2024-06-26 11:29 | A.OFFVIS_ITS ---
Vital Signs 06/26/24 11:46 Weight 283 lb BP 181/96 H Blood Pressure Location Rt brachial Position Sitting Pulse 76 Pulse Source Pulse Oximeter Temp 98.6 F Temp Source Oral Pulse Oximetry (%) 97 Oxygen Delivery Method Room Air Intake Visit Reasons: Fungus Ball, reccurent Allergies prednisone Allergy (Severe, Verified 05/27/24 14:02) vaginal bleeding Iodine and Iodide Containing Produc Allergy (Intermediate, Verified 05/27/24 14:02) Rash adhesive tape Allergy (Verified 05/27/24 14:02) Rash amlodipine Allergy (Verified 05/27/24 14:02) Swelling noracaine Allergy (Unknown, Uncoded 06/26/24 11:31) unk HPI HPI Fungus Ball, reccurent: Details: She was scheduled for my fungal infection is back . I had seen her in 2021 after she was seen by Dr. Saran Ho at [facility] for fungal ball in kidneys. She had not received IV treatment there but I did give her Caspofungin for 21 days and she claimed problem went away for two years . She has description of right flank pain chronic 610 that has been present for last month but no fever or chills or hematuria. She has been following with Renal,Dr Keys. She has had renal u/s January 2024 and shows no densities in kidneys c/w fungal balls. She denies having u/s and is on her way to Medical Records to explain that this study was done on another patient. She also complains she had to wait here for two hours before being seen ,but she was seen on time as her appt was 1145. Apparently her transportation dropped her off early. Cultures shows no fungus in urine. She has worsening CKD. [facility] Medical History Hx of blood transfusion reaction Fungus ball Hernia PCOS (polycystic ovarian syndrome) Anxiety HTN (hypertension) Diabetes Surgical History Hx of cholecystectomy S/P discectomy for herniated nucleus pulposus H/O shoulder surgery History of mandibular surgery H/O oral surgery H/O brain surgery Family History Father Diabetes HTN (hypertension) Mother Diabetes HTN (hypertension) CAD (coronary artery disease) Social History Household Members Other:: female partner Housing: Apartment Alcohol intake: never Patient Tobacco Use Status: Former Tobacco user Tobacco use type: Cigarette Cigarettes Per Day: 10 Years Smoked: 30 Substance Use Type: Marijuana Review of Systems Const All systems reviewed & are unremarkable except as noted in HPI and below Physical Exam Vital Signs: Last Vital Signs Temp 98.6 F 06/26/24 11:46 Pulse 76 06/26/24 11:46 BP 181/96 H 06/26/24 11:46 Pulse Ox 97 06/26/24 11:46 Oxygen Delivery Method Room Air 06/26/24 11:46 Const General: cooperative Orientation/consciousness: patient oriented x3 HEENT Head: Yes normal to inspection Mouth: Normal oral and palatal mucosa present Eyes General: appearance normal, both eyes and all related structures Pupils: Equal, round and reactive pupils present Resp Effort & Inspection: normal respiratory effort Cardio Rate: regular rate Rhythm: regular rhythm GI Palpation (GI): Soft to palpation and nontender General: Yes no CVA tenderness Back/Spine/Pelvis Back: no CVA tenderness Skin General skin exam: no rashes or lesions noted Neuro General: patient oriented x3 Cranial nerves: Yes CN's II-XII intact bilaterally and Yes Equal, round and reactive pupils present Extrem General: Yes normal to inspection Psych Appearance: grossly normal Assessment & Plan Assessment & Plan (1) CKD (chronic kidney disease) stage 3, GFR 30-59 ml/min: Comment: There is no evidence of fungal involvement kidneys that I can see at this time Code(s): N18.30 - Chronic kidney disease, stage 3 unspecified Category: Medical Plan: Would not give antifungal treatment as no indication at this time. Coding Level of Care Code Est Pt Level 3 (16001) Diagnoses CKD (chronic kidney disease) stage 3, GFR 30-59 ml/min N18.30
[2024-06-26 11:46] VITALS: BP 181/96; PULSE 76; TEMP 37; O2SAT 97
== END 2024-06-26 12:19 | disposition home or self-care (01) ==
LOC: HO.HID 11:29
PROVIDERS: PCP Nurse Practitioner Family; Visit Provider Internal Medicine
DX: N18.30 Chronic kidney disease, stage 3 unspecified (principal)
CPT/HCPCS: 99213

== ENCOUNTER → 2024-06-26 11:29 | Outpatient (BNVA) | payer OTHER, SELFPAY | PROVIDERS: PCP Nurse Practitioner Family; Visit Provider Internal Medicine | DX: N18.30 Chronic kidney disease, stage 3 unspecified (principal); B48.8 Other specified mycoses | CPT/HCPCS: 99212 ==

== ENCOUNTER 2025-05-06 08:56 | Outpatient (AMB) | payer OTHER, SELFPAY ==
--- OUTSIDE RECORDS SUMMARY | 2024-07-17 08:51 | XMS_ITS | Encounter Summary ---
Author Organization [place] [address] Care Team Providers Care Metallurgical Analyst Name Role Phone Archie Quinones Jj ACCOUNT SPECIALIST Primary Care Provider [phone] Encounter Details Date Type Department Care Team ([facility] st Contact Info) Description 07/17/2024 8:51 AM EDT Hospital Encounter TH HISTORIC ENCOUNTERS EASTERN CONVERSION ONLY Eros Fernández MD [address] [place] [phone] Social History Tobacco Use Types Packs/Day Years Used Date Smoking Tobacco: Every Day Cigarettes Alcohol Use Standard Drinks/Week Comments Never 0 (1 standard drink = 0.6 oz pur e alcohol) Interpersonal Safety Answer Date Record ed Physical Abuse 10/18/2024 Verbal Abuse 10/18/2024 Comments No Sex and Gender Information Value Date Recorded Sex Assigned at Female 10/16/2024 3:33 PM EST Legal Sex Female 7:31 AM EST Gender Identity Female 10/16/2024 3:33 PM EST Sexual Orientation Lesbian or Christian 10/18/2024 7: 25 AM EST documented as of this encounter Last Filed Vital Signs Vital Sign Reading Time Taken Comments Blood Pressure 181/112 07/17/2024 9:30 AM EDT Sit ting Right arm Pulse - - Temperature - - Respiratory Rate - - Oxygen Saturation - - Inhaled Oxygen Concentration - - Weight 129 kg (284 lb) 07/17/2024 9:30 AM EDT Height 182.9 cm (6') 07/17/2024 9:30 AM EDT Body Mass Index 38.52 07/17/2024 9:30 AM EDT documented in this encounter Progress Notes * Eros Fernández MD - 07/17/2024 9:00 AM EDT HPI: Loyda Dykes is a 48 y.o. year old female referred to our center by No primary care provider on file. for evaluation and manage 48 yo female with past medical DM uncontrolled, HTN , Fibromyalagia , neuropathy , stage 4 kidney disease , drop foot , she follow with GI and general surgery for constipation , hernia , She had an accident in 2005 , she had jaw fracture , ? Brain surgery for bone fragments , spinal fusion surgery Headache: Patient presents for evaluation of headache. Symptoms began about since been a teenager ,got worse . Generally, the headaches last about several hours and occur continuously. Her headache free days a month is 0 the headaches are usually worse in the morning. The headaches are usually severe, pounding and throbbing and are located in Lt temporal , coronal . The patient rates her most severe headaches a 10 on a scale from 1 to 10. Recently, the headaches have been increasing in both severity and frequency. Work attendance or other daily activities are affected by the headaches. Precipitating factors include: hot temperatures, stress and weather changes. The headaches are usually preceded by an aura consisting of photopsias and visual scintillations. Associated neurologic symptoms: dizziness and nausea , vomiting , phonophobia , photophobia , shakiness. The patient denies muscleweakness and numbness of extremities. Home treatment has included acetaminophen, amitriptyline, fioricet and Imitrex oral, darkening the room, resting and sleeping with no improvement. Other history i ncludes: migraine headaches diagnosed in the past. Family history includes migraine headaches in mother, sister, grandparents and aunt. She was on imtrix and had severe adverse reaction central nervous system shutdown she could not communicate She snore and has difficulty breathing difficulty and wake up refreshed with a deep-seated headacheduring the day she never was evaluated for sleep apnea patient habitus is concerning for sleep apnea amitriptyline allergic to medication she had swelling had to , topamax with no improvement and had a dry mouth side effects from her treatment Past Medical History: Diagnosis Date ??? Hypertension ??? Migraine Current Outpatient Medications Medication Sig Dispense Refill ??? B-D UF III MINI PEN NEEDLES 31G X 5 MM MISC USE DAILY TO INJECT 4 TIMES PER DAY FOR DM2 E11.65 ??? Octhzkmwii-ZNHW-Fxbumuis 50-300-40 MG CAPS TAKE 1 CAPSULE BY MOUTH TWICE A DAY. DO NOT EXCEED 3CAPSULES PER DAY ??? cyclobenzaprine (FLEXERIL) 10 MG tablet TAKE 1 TABLET BY MOUTH 3 TIMES A DAY FOR 14 DAYS NEEDED FOR SPASM ??? D3-1000 25 MCG (1000 UT) tablet Take 2 tablets (2,000 Units total) by mouth daily. ??? esomeprazole (NexIUM) capsule 20 mg TAKE 1 CAPSULE BY MOUTH DAILY X 30 DAYS ON EMPTY STOMACH ??? famotidine (PEPCID) 20 MG tablet Take 1 tablet (20 mg total) by mouth 2 (two) times a day. ??? ferrous sulfate 325 (65 FE) MG tablet Take 1 tablet (325 mg total) by mouth daily. ??? furosemide (LASIX) 40 MG tablet TAKE 2 TABLET BY MOUTH 2 TIMES A DAY X 7 DAYS ??? hydrALAZINE (APRESOLINE) 50 MG tablet Take 1 tablet (50 mg total) by mouth 3 (three) times a day. ??? insulin glargine (Lantus SoloStar) 100 UNIT/ML injection INJECT 35 UNITS SUBCUTANEOUSLY EVERY NIGHT AT BEDTIME (42-DAY SUPPLY) ??? insulin lispro protamine-insulin lispro (HumaLOG MIX 50/50 KWIKPEN) injection 100 units/mL Inject under the skin. ??? Insulin Lispro, 1 Unit Dial, 100 UNIT/ML SOPN USE TO INJECT UP TO 90UNITS PER DAY PER SLIDING SCALE 3 TIMES A DAY ??? lactulose (CHRONULAC) 10 GM/15ML solution TAKE 15MLS BY MOUTH EVERY DAY NEEDED FOR CONSTIPATION ??? methocarbamol (ROBAXIN) 750 MG tablet TAKE 1 TABLET BY MOUTH 3 TIMES A DAY FOR 14 DAYS ??? metOLazone (ZAROXOLYN) 2.5 MG tablet Take 1 tablet (2.5 mg total) by mouth. ??? Naloxegol Oxalate (Movantik) 25 MG TABS Take 1 tablet by mouth daily. ??? ondansetron (ZOFRAN) 4 MG tablet TAKE 1 TABLET BY MOUTH EVERY 8 HOURS NEEDED FOR NAUSEA AND VOMITING FOR 7 DAYS ??? QUEtiapine (SEROquel) 300 MG tablet Take 1 tablet (300 mg total) by mouth every night at bedtime. ??? senna (Senna-Time) 8.6 MG tablet TAKE 2 TABLETS BY MOUTH AT BEDTIME NEEDED FOR CONSTIPATION ??? thiamine (VITAMIN B-1) 100 MG tablet Take 1 tablet (100 mg total) by mouth daily. ??? valsartan (DIOVAN) tablet 40 mg Take 1 tablet (40 mg total) by mouth 2 (two) times a day. No current facility-administered medications for this visit. Not on File Social history: Tobacco: smoke cigarettes Alcohol No Drug use: No Exercise habits: No Lives with her , she is a grand daughter Family history: There is no significant family history Neurologic Exam: BP (!) 181/112 (BP Location: Right arm, Patient Position: Sitting) Temp 97.8 ??F (36.6 ??C) (Temporal) Ht 6' (1.829 m) Wt 128.8 kg (284 lb) BMI 38.52 kg/m?? MS: AOx3 CN: perrla, V1-3 intact to LT, face symmetric, bilateral SCM/trapezius 5/5, tongue/uvula/palate midline Motor: 5/5 in all extremities except bilateral lower extremity 4/5 worse on the left side, she doeshave swollen tender bilateral lower extremity with redness and ulcers Sensation decreased distal sensation in bilateral lower extremity to light touch, temperature, and vibration in all extremities Reflexes: 2+ in bilateral biceps and 1+ patellae, toes downgoing bilaterally Cerebellar: FNF intact bilaterally, FFM intact bilaterally, PAKO intact bilaterally, unable to tandem gaitromberg positive Labs: Imaging: All images were reviewed by me. A/P: Loyda Dykes is a 48 y.o. year old female with a very complicated past medical historypastmedical DM uncontrolled, HTN , Fibromyalagia , neuropathy , stage 4 kidney disease , drop foot , she follow with GI and general surgery for constipation , hernia , She had an accident in 2005 , she had jaw fracture , ? Brain surgery for bone fragments , spinal fusion surgery referred to our center by No primary care provider on file. for evaluation and management of migraine headache associated with visual aura nausea photophobia and phonophobia 30/30 days a month ranges between 05/11- 07/11 patient failed multiple medication including Elavil Imitrex Fioricet and Topamax either for side effects or not being effective patient has multiple GI problems including chronic constipation multiple hernias she is being worked up with GI scheduled to get a colonoscopy prolonged discussion with the patient about preventative and rescue medication for her headaches we agreed that the best approach isnot adding another oral medication mainly when she feels for medications will authorize patient forBotox for chronic headaches and for rescue therapy patient was handed Ubrelvy she could not tolerate triptans Will authorize patient for Botox for chronic headaches We will obtain basic labs and vitamin levels Will obtain a brain MRI to exclude any structural cause for her headaches also evaluate for her prior injury Patient was handed Ubrelvy samples for rescue therapy Comorbidity management as per PCP hypertension/diabetes Will order a sleep study to evaluate for sleep apnea -RTC in 3months for follow up The patient and I discussed the clinical picture during today's appointment. Additional time was spent prior to the actual appointment reviewing records, lab values and imaging results and preparing documentation for today's visit. There was also time spent following the in person visit documenting, arranging for further diagnostic testing and follow-up appointments. The entire time spent in thisprocess was greater than 50 minutes. The majority of the actual sscd-qs-yogg visit was spent counseling the patient with respect to the current neurological picture. Eros Fernández MD documented in this encounter Plan of Treatment Upcoming Encounters Date Type Department Care Team (Late st Contact Info) Description 06/10/2025 8:15 AM EDT Office Visit General Surgery - [place] [address] [phone] Alon Smith MD [address] [address] documented as of this encounter Visit Diagnoses Not on filedocumented in this encounter Care Teams Metallurgical Analyst Relationship Specialty Start Date End Date Archie Quinones NP [address] [place] [address] PCP - General 06/27/24 documented as of this encounter
--- OUTSIDE RECORDS SUMMARY | 2025-05-06 09:15 | XMS_ITS | Encounter Summary ---
Author Organization [facility] Address [address] [place] [address] Phone Care Team Providers Care Stave Grader Name Role Phone Archie Quinones NP Primary Care Provider Reason for Visit * Reason Comments Med Refill Encounter Details Date Type Department Care Team (Late st Contact Info) Description 09/06/2022 [facility]ill [facility] [address] [place] [address] [place] [phone] Stanley Holden MD Hypertensive chronic kidney disease, unspecified, with chronic kidney disease stage I through stage IV, or unspecified Social History Tobacco Use Types Packs/Day Years Used Date Smoking Tobacco: Never Smokeless Tobacco: Never Alcohol Use Standard Drinks/Week Comments Never 0 (1 standard drink = 0.6 oz pur e alcohol) Comments Unknown Sex and Gender Information Value Date Recorded Sex Assigned at Not on file Legal Sex Female 11:07 AM EDT Gender Identity Not on file Sexual Orientation Not on file documented as of this encounter Miscellaneous Notes * Telephone Encounter - Stanley Holden MD - 09/06/2022 2:07 PM EST Needs appointment documented in this encounter Plan of Treatment Not on file documented as of this encounter Visit Diagnoses Diagnosis Hypertensive chronic kidney disease, unspecified, with chronic kidney disease stage I through stage IV, or unspecified documented in this encounter Care Teams Stave Grader Relationship Specialty Start Date End Date Archie Quinones NP [address] [facility] [address] [place] PCP - General Nurse Practitioner 2/9/22 documented as of this encounter
--- OUTSIDE RECORDS SUMMARY | 2025-05-06 09:15 | XMS_ITS | Clinical Summary ---
Author Organization [facility] Address [address] [place] [address] Care Team Providers Care Solid Waste Collection Worker Name Role Phone Unavailable Primary Care Provider Unavailabl e Medications Medication Sig Dispensed Refills Start Date End Date Status Bzlnbbhykw-PQDY-Qo ffeine 50-300-40 MG CAPS TAKE 1 CAPSULE BY MOUTH TWICE A DAY. DO NOT EXCEED 3 CAPSULES PER DAY 0 05/27/2024 Active D3-1000 25 MCG (1000 UT) tablet Take 2 tablets (2,000 Units total) by mouth daily. 0 05/21/2024 Active cyclobenzaprine (FLEXERIL) 10 MG tablet TAKE 1 TABLET BY MOUTH 3 TIMES A DAY FOR 14 DAYS NEEDED FOR SPASM 0 03/31/2023 Active esomeprazole (NexIUM) capsule 20 mg TAKE 1 CAPSULE BY MOUTH DAILY X 30 DAYS ON EMPTY STOMACH 0 06/12/2024 Active famotidine (PEPCID) 20 MG tablet Take 1 tablet (20 mg total) by mouth 2 (two) times a day. 0 04/17/2017 Active ferrous sulfate 325 (65 FE) MG tablet Take 1 tablet (325 mg total) by mouth daily. 0 06/04/2024 Activ e furosemide (LASIX) 40 MG tablet TAKE 2 TABLET BY MOUTH 2 TIMES A DAY X 7 DAYS 0 04/30/2023 Activ e hydrALAZINE (APRESOLINE) 50 MG tablet Take 1 tablet (50 mg total) by mouth 3 (three) times a day. 0 03/24/2022 Active methocarbamol (ROBAXIN) 750 MG tablet TAKE 1 TABLET BY MOUTH 3 TIMES A DAY FOR 14 DAYS 0 05/21/2024 Active metOLazone (ZAROXOLYN) 2.5 MG tablet Take 1 tablet (2.5 mg total) by mouth. 0 03/15/2024 Active Naloxegol Oxalate (Movantik) 25 MG TABS Take 1 tablet by mouth daily. 0 05/16/2024 Active ondansetron (ZOFRAN) 4 MG tablet TAKE 1 TABLET BY MOUTH EVERY 8 HOURS NEEDED FOR NAUSEA AND VOMITING FOR 7 DAYS 0 Active QUEtiapine (SEROquel) 300 MG tablet Take 1 tablet (300 mg total) by mouth every night at bedtime. 0 06/08/2021 Active senna (Senna-Time) 8.6 MG tablet TAKE 2 TABLETS BY MOUTH AT BEDTIME NEEDED FOR CONSTIPATION 0 03/19/2023 Active thiamine (VITAMIN B-1) 100 MG tablet Take 1 tablet (100 mg total) by mouth daily. 0 05/21/2024 Activ e valsartan (DIOVAN) tablet 40 mg Take 1 tablet (40 mg total) by mouth 2 (two) times a day. 0 07/08/2024 Active lactulose (CHRONULAC) 10 GM/15ML solution TAKE 15MLS BY MOUTH EVERY DAY NEEDED FOR CONSTIPATION 0 05/04/2024 Active B-D UF III MINI PEN NEEDLES 31G X 5 MM MISC USE DAILY TO INJECT 4 TIMES PER DAY FOR DM2 E11.65 0 05/05/2024 Active insulin lispro protamine-insulin lispro (HumaLOG MIX 50/50 KWIKPEN) injection 100 units/mL Inject under the skin. 0 Ac tive Insulin Lispro, 1 Unit Dial, 100 UNIT/ML SOPN USE TO INJECT UP TO 90UNITS PER DAY PER SLIDING SCALE 3 TIMES A DAY 0 01/21/2022 Active insulin glargine (Lantus SoloStar) 100 UNIT/ML injection INJECT 35 UNITS SUBCUTANEOUSLY EVERY NIGHT AT BEDTIME (42-DAY SUPPLY) 0 06/11/2021 Active Social History Tobacco Use Types Packs/Day Years Used Date Smoking Tobacco: Never Assessed Sex and Gender Information Value Date Recorded Sex Assigned at Female 06/18/2024 1:55 PM EDT Gender Identity Not on file Sexual Orientation Not on file Job Start Date Occupation Industry Not on file Not on file Not on file Last Filed Vital Signs Vital Sign Reading Time Taken Comments Blood Pressure 181/112 07/17/2024 9:30 AM EDT Pulse - - Temperature 36.6 C (97.8 F) 07/17/2024 9:30 AM EDT Respiratory Rate - - Oxygen Saturation - - Inhaled Oxygen Concentration - - Weight 128.8 kg (284 lb) 07/17/2024 9:30 AM EDT Height 182.9 cm (6') 07/17/2024 9:30 AM EDT Body Mass Index 38.52 07/17/2024 9:30 AM EDT Plan of Treatment Health Maintenance Due Date Last Done Comments Hepatitis B Vaccines (1 of 3 - 3-dose series) 1973 Hepatitis C Screening 1973 COVID-19 Vaccine (#1) 06/26/1974 Depression Screening 1985 Preventative Health Evaluation 12/25/1991 Cervical Cancer Screening (P ap Smear) 1994 Colon Cancer Screening (Colonoscopy) 2018 DTap / Tdap / Td (2 - Td or Tdap) 01/31/2022 012 Breast Cancer Screening (Mammogram) 12/25/2023 Shingrix-Zoster Vaccine (1 of 2) 12/25/2023 Influenza Vaccine (#1) 2025 08/17/2011 Pneumococcal Vaccine Aged Out No long er eligible based on patient's age to complete this topic RSV Ped < 20 months Aged Out No longe r eligible based on patient's age to complete this topic Insurance Payer Benefit Plan / Group Subscriber ID Effective Dates Phone Address [facility] HAS [id number] 2020-Present [address] [facility] [address] [place] [address] [facility] [id number] [address] [place] [address] Loyda Dykes Personal/Family Self [address] [address]
--- OUTSIDE RECORDS SUMMARY | 2025-05-06 09:15 | XMS_ITS ---
Author Name [facility] Organization Unknown History of Medication Use Medication Directions Dispensed Refills Start Date End Date Stat us Naloxegol Oxalate (Movantik) 25 MG TABS Take 1 tablet by mouth daily. 05/16/2024 active B-D UF III MINI PEN NEEDLES 31G X 5 MM MISC USE DAILY TO INJECT 4 TIMES PER DAY FOR DM2 E11.65 05/05/2024 active metOLazone (ZAROXOLYN) 2.5 MG tablet Take 1 tablet (2.5 mg total) by mouth. 03/15/2024 active cyclobenzaprine (FLEXERIL) 10 MG tablet TAKE 1 TABLET BY MOUTH 3 TIMES A DAY FOR 14 DAYS NEEDED FOR SPASM 03/31/2023 active senna (Senna-Time) 8.6 MG tablet TAKE 2 TABLETS BY MOUTH AT BEDTIME NEEDED FOR CONSTIPATION 03/19/2023 active Insulin Lispro, 1 Unit Dial, 100 UNIT/ML SOPN USE TO INJECT UP TO 90UNITS PER DAY PER SLIDING SCALE 3 TIMES A DAY 01/21/2022 active insulin glargine (Lantus SoloStar) 100 UNIT/ML injection INJECT 35 UNITS SUBCUTANEOUSLY EVERY NIGHT AT BEDTIME (42-DAY SUPPLY) 06/11/2021 active famotidine (PEPCID) 20 MG tablet Take 1 tablet (20 mg total) by mouth 2 (two) times a day. 04/17/2017 active insulin lispro protamine-insulin lispro (HumaLOG MIX 50/50 KWIKPEN) injection 100 units/mL Inject under the skin. active ondansetron (ZOFRAN) 4 MG tablet TAKE 1 TABLET BY MOUTH EVERY 8 HOURS NEEDED FOR NAUSEA AND VOMITING FOR 7 DAYS active Problems Problem Status Onset Date Problem Type Date of Resolution Source Migraine with aura and without status migrainosus, not intractable active EncounterDiagnosisAct CTTHNE MG
--- NOTE | 2025-05-06 09:35 | HO.NEPHOV_ITS ---
Vital Signs 05/06/25 09:36 Height 6 ft Weight 280 lb BMI 38.0 BP 182/92 H Blood Pressure Location Rt brachial Position Sitting Pulse 96 Pulse Source Pulse Oximeter Pulse Oximetry (%) 98 Oxygen Delivery Method Room Air Intake Visit Reasons: FU requested by Pt/ Conf Account Services Associate Required: No Accompanied by: girlfriend Allergies prednisone Allergy (Severe, Verified 05/06/25 09:38) vaginal bleeding Iodine and Iodide Containing Produc Allergy (Intermediate, Verified 05/06/25 09:38) Rash adhesive tape Allergy (Verified 05/06/25 09:38) Rash amlodipine Allergy (Verified 05/06/25 09:38) Swelling noracaine Allergy (Unknown, Uncoded 06/26/24 11:31) unk Medication List - Last Reconciled 05/06/25 by Stanley Holden MD albuterol sulfate 90 mcg/actuation (Ventolin HFA) inhalation muyjdjdfus-cpchvjtvsoizv-fepu 50-300-40 mg (Fioricet) 1 cap PO Q8H PRN cholecalciferol (vitamin D3) 25 mcg PO DAILY cholecalciferol (vitamin D3) PO esomeprazole magnesium 20 mg PO DAILY esomeprazole magnesium 20 mg PO DAILY famotidine 20 mg PO BID ferrous sulfate 325 mg PO DAILY flash glucose sensor (FreeStyle Jose 2 Sensor kit) As directed furosemide 40 mg PO BID hydralazine 50 mg PO TID insulin regular hum U-500 conc (Humulin R U-500 (Conc) Insulin Kwikpen) 80 units subcut lactulose mL PO BID methocarbamol 750 mg PO BEDTIME metolazone 2.5 mg PO 2XW naloxegol (Movantik) 12.5 mg PO QAM ondansetron HCl 4 mg PO Q8H PRN quetiapine (Seroquel) 300 mg PO BEDTIME quetiapine (Seroquel) 50 mg PO DAILY semaglutide (Ozempic) mg subcut QWEEK sennosides (senna) 8.6 mg PO BID sennosides (senna) 17.2 mg PO DAILY thiamine HCl (vitamin B1) 100 mg PO DAILY valsartan 160 mg PO DAILY HPI Comments Details: 47-year-old woman with multiple medical problems with chronic leg ulcers and CKD. In the past serologies and ANCA titers were normal. She had sustained acute kidney injury which is resolved and she continues her chronic disease the baseline creatinine around 2 mg/dL. She is complaining of right-sided abdominal pain. Abdomen is bloated. She does have some constipation. Nexium has been ordered USG results pending Still with edema even after lowering Amlodipine On Metolazone 2 x week and Lasix 40 mg daily 05/27/24 Gained weight On Lasix 40 mg QD with MEtolazone 2.5 mg 2x week Diagnosed with diab retinopathy 05/06/25 The patient is a 49-year-old female presenting with resistant HTN and CKD s/p hernia surgery complications, suspected cancerous ulcer, The patient underwent hernia surgery in December, during which a mesh was implanted. However, the surgeon suspects mesh rejection due to persistent scabbing and discoloration at the surgical site. The patient is under wound care and is scheduled for a follow-up with the surgeon on June 10, with a potential for revision surgery if necessary. The patient reports a non-healing ulcer, suspected to be cancerous, which has persisted for over a year. A biopsy is scheduled for the upcoming Monday to confirm the diagnosis. The azure principal solution specialist has recommended compression socks to be worn for two to three hours daily. The patient experiences chest pain radiating from the left side over the breast to the middle and under the arm. Her distributor cleaner has increased her valsartan dosage to 160 mg due to concerns about her kidney disease. The patient is also on hydralazine and furosemide, with adjustments made to avoid concurrent intake of valsartan and furosemide. She is concerned about her high blood pressure, which remains elevated despite medication adjustments. The patient suffers from neuropathy, with severe symptoms in her legs, hands, and feet. She reports a lack of sensation in her feet and lower legs, extending up to her knees, and significant pain in her hands, particularly in the morning and at night. The patient has diabetes mellitus and has recently switched to Humulin U-500 insulin, administered twice daily. Despite this change, her blood glucose levels remain elevated, ranging from 300 to 400 mg/dL. She has also started Ozempic at a dose of 0.25 mg, with plans to increase to 0.5 mg next week. [facility] Medical History Hx of blood transfusion reaction Fungus ball Hernia PCOS (polycystic ovarian syndrome) Anxiety HTN (hypertension) Diabetes Surgical History Hx of cholecystectomy S/P discectomy for herniated nucleus pulposus H/O shoulder surgery History of mandibular surgery H/O oral surgery H/O brain surgery Family History Father Diabetes HTN (hypertension) Mother Diabetes HTN (hypertension) CAD (coronary artery disease) Social History Household Members Other:: female partner Housing: Apartment Alcohol intake: never Patient Tobacco Use Status: Former Tobacco user Tobacco use type: Cigarette Cigarettes Per Day: 10 Years Smoked: 30 Substance Use Type: Marijuana Physical Exam Vital Signs: Last Vital Signs Pulse 96 05/06/25 09:36 BP 182/92 H 05/06/25 09:36 Pulse Ox 98 05/06/25 09:36 Oxygen Delivery Method Room Air 05/06/25 09:36 BMI result Body Mass Index 38.0 Const General: comfortable Nutritional Appearance: well nourished Orientation/consciousness: patient oriented x3 HEENT Head: No normal to inspection Mouth: moist mucous membranes Neck Neck: Yes supple and Yes no JVD Resp Auscultation: clear to auscultation bilaterally and no rales Cardio Jugular venous distension: no JVD Palpation: no palpable S3 and no palpable S4 Heart sounds: no rubs GI Inspection: Yes distended Palpation (GI): Soft to palpation and nontender Percussion: No Fluid wave present General: Yes no CVA tenderness Back/Spine/Pelvis Back: no CVA tenderness Skin Wounds: wounds noted Neuro General: patient oriented x3 Extrem General: No clubbing and Yes edema Left upper extremity: abnormal capillary refill Results Reviewed Nephrology Results: Hgb, (12.0-16.0) 13.0 g/dl 06/10/24 WBC, (4.8-10.8) 7.4 X10*3/uL 06/10/24 Plt Count, (160-400) 203 X10*3/uL 06/10/24 Sodium, (135-145) 139 mmol/L 06/10/24 Potassium, (3.3-5.1) 4.2 mmol/L 06/10/24 Chloride, (96-108) 104 mmol/L 06/10/24 Carbon Dioxide, (22-29) 25 mmol/L 06/10/24 BUN, (9-16) 18 mg/dL H 06/10/24 Creatinine, (0.5-1.4) 1.99 mg/dL H 06/10/24 Calcium, (8.4-10.2) 9.1 mg/dL 06/10/24 Urine Protein, (Neg-Trace) 300 (3+) mg/dL H 06/10/24 Renal US 03/11/22 Assessment & Plan Assessment & Plan (1) Fungus ball: Comment: She has some right flank complaints. She has no dysuria Code(s): B49 - Unspecified mycosis Category: Medical (2) CKD (chronic kidney disease) stage 3, GFR 30-59 ml/min: Code(s): N18.30 - Chronic kidney disease, stage 3 unspecified Category: Medical (3) HTN (hypertension): Code(s): I10 - Essential (primary) hypertension Category: Medical Plan History of NEISHA superimposed on CKD. NEISHA superimposed on CKD. Creatinine is bumped up probably from natural progression She continues to have leg edema. Metolazone 5 mg QD Increase Lasix to 40 mg b.i.d. due to worsening edema Hold off amlodipine due to edema and Keep Hydralazine from 50 mg t.i.d. BP better controlled Low salt diet Waiting for colonoscopy followed by surgical evaluation. DM - Blood sugar is sub optimal Needs better control Follow up with Endocrine Upon her request request I will referred to Infectious Disease for follow-up regarding the fungal ball 05/06/25 Advanced CKD in a setting of DM and resistant HTN No recent renal panel Check BMP today Resistant HTN Add amlodipine 5 mg DAILY and titrate dose as tolerated Stay on low salt diet Orders: Orders Comprehensive Met. Panel Today Stanley Holden MD I10 - Essential (primary) hypertension, N18.30 - Chronic kidney disease, stage 3 unspecified Phosphorus Today Stanley Holden MD I10 - Essential (primary) hypertension, N18.30 - Chronic kidney disease, stage 3 unspecified Complete Blood Count Auto Diff Today Stanley Holden MD I10 - Essential (primary) hypertension, N18.30 - Chronic kidney disease, stage 3 unspecified Parathyroid Hormone Intact Today Stanley Holden MD I10 - Essential (primary) hypertension, N18.30 - Chronic kidney disease, stage 3 unspecified Medications: New amlodipine 5 mg PO DAILY 30 tabs 1RF Stanley Holden MD Changed From valsartan 40 mg PO DAILY 90 tabs 4RF To valsartan 160 mg PO DAILY Shaun Chi MD Coding Level of Care Code Est Pt Level 4 (60501) Diagnoses Fungus ball B49 CKD (chronic kidney disease) stage 3, GFR 30-59 ml/min N18.30 HTN (hypertension) I10
[2025-05-06 09:36] VITALS: BP 182/92; PULSE 96; O2SAT 98; BMI 38.0
== END 2025-05-06 10:07 | disposition home or self-care (01) ==
LOC: HO.HKA 08:56
PROVIDERS: PCP Nurse Practitioner Family; Visit Provider Internal Medicine Hypertension Specialist
DX: B49 Unspecified mycosis (principal); N18.30 Chronic kidney disease, stage 3 unspecified; I10 Essential (primary) hypertension
CPT/HCPCS: 99214

== ENCOUNTER → 2025-05-06 08:56 | Outpatient (BNVA) | payer OTHER, SELFPAY | PROVIDERS: PCP Nurse Practitioner Family; Visit Provider Internal Medicine Hypertension Specialist | DX: I10 Essential (primary) hypertension (principal); N18.30 Chronic kidney disease, stage 3 unspecified; B49 Unspecified mycosis; E11.9 Type 2 diabetes mellitus without complications | CPT/HCPCS: 99212 ==

== ENCOUNTER 2025-05-06 10:24 | Outpatient (REF) | payer OTHER, SELFPAY ==
[2025-05-06 13:32] LABS: MANUAL DIFF FLAG NO
[2025-05-06 13:41] LABS: Hematocrit 39.1 % (37.0-47.0); Hemoglobin 13.4 g/dl (12.0-16.0); Imm Gran Abs Auto 0.01 X10*3/uL (0.00-0.03); Imm Gran Pct Auto 0.1 % (0.0-0.4); Lymphocytes Absolute Auto 2.6 X10*3/uL (1.2-4.9); Mean Corpuscular HGB Conc 34.3 g/dl (31.0-35.0); Mean Corpuscular Hemoglobin 30.2 pg (27.0-33.0); Mean Corpuscular Volume 88.3 fL (80.0-98.0); NRBC Abs Auto 0.000 X10*3/uL (0.0-0.012); NRBC Pct Auto 0.0 /100WBC (0.0-0.2); Platelet Count 171 X10*3/uL (160-400); Red Blood Count 4.43 X10*6/uL (4.20-5.50); White Blood Count 7.5 X10*3/uL (4.8-10.8)
[2025-05-06 14:09] LABS: Alanine Aminotransferase 46 U/L (0-31); Albumin Level 3.4 g/dL (3.5-5.0); Alkaline Phosphatase 80 U/L (39-117); Anion Gap 12 (12-20); Aspartate Amino Transferase 48 U/L (5-31); Blood Urea Nitrogen 20 mg/dL (9-16); Calcium 9.0 mg/dL (8.4-10.2); Carbon Dioxide 22 mmol/L (22-29); Chloride 104 mmol/L (96-108); Estimated Glomerular Filt Rate 25; Potassium 4.4 mmol/L (3.3-5.1); Sodium 134 mmol/L (135-145); Total Protein 7.8 g/dL (6.5-8.0)
[2025-05-06 14:23] LABS: Parathyroid Hormone Intact 80.7 pg/mL (8.7-77.1)
== END 2025-05-06 10:25 | disposition home or self-care (01) ==
LOC: HO.10HDL 10:24
PROVIDERS: Visit Provider Internal Medicine Hypertension Specialist
DX: I12.9 Hypertensive chronic kidney disease with stage 1 through stage 4 chronic kidney disease, or unspecified chronic kidney disease (principal); N18.30 Chronic kidney disease, stage 3 unspecified
CPT/HCPCS: 36415; 80053; 83970; 84100; 85025

== ENCOUNTER 2025-06-26 11:45 | Outpatient (AMB) | payer OTHER, SELFPAY ==
[2025-06-26 13:05] VITALS: BP 132/82; PULSE 91; O2SAT 97; BMI 37.0
--- NOTE | 2025-06-26 13:05 | HO.NEPHOV ---
Vital Signs 06/26/25 13:05 Height 6 ft Weight 273 lb BMI 37.0 BP 132/82 Blood Pressure Location Lt brachial Position Sitting Pulse 91 Pulse Source Pulse Oximeter Pulse Oximetry (%) 97 Oxygen Delivery Method Room Air Intake Visit Reasons: R/S 06/19/2025 , confirmed Transplant Immunologist Required: No Accompanied by: Self / Same As Patient Allergies prednisone Allergy (Severe, Verified 06/26/25 13:07) vaginal bleeding Iodine and Iodide Containing Produc Allergy (Intermediate, Verified 06/26/25 13:07) Rash adhesive tape Allergy (Verified 06/26/25 13:07) Rash amlodipine Allergy (Verified 06/26/25 13:07) Swelling noracaine Allergy (Unknown, Uncoded 06/26/24 11:31) unk Medication List - Last Reconciled 06/26/25 by Stanley Holden MD albuterol sulfate 90 mcg/actuation (Ventolin HFA) inhalation thovcuanhw-vbzvociubwbrj-wbru 50-300-40 mg (Fioricet) 1 cap PO Q8H PRN cholecalciferol (vitamin D3) 25 mcg PO DAILY cholecalciferol (vitamin D3) PO esomeprazole magnesium 20 mg PO DAILY esomeprazole magnesium 20 mg PO DAILY famotidine 20 mg PO BID ferrous sulfate 325 mg PO DAILY flash glucose sensor (FreeStyle Jose 2 Sensor kit) As directed furosemide 40 mg PO BID hydralazine 50 mg PO TID insulin regular hum U-500 conc (Humulin R U-500 (Conc) Insulin Kwikpen) 80 units subcut lactulose mL PO BID methocarbamol 750 mg PO BEDTIME metolazone 2.5 mg PO 2XW naloxegol (Movantik) 12.5 mg PO QAM nifedipine ER (Procardia XL) 30 mg PO DAILY ondansetron HCl 4 mg PO Q8H PRN quetiapine (Seroquel) 300 mg PO BEDTIME quetiapine (Seroquel) 50 mg PO DAILY semaglutide (Ozempic) 0.5 mg subcut QWEEK sennosides (senna) 8.6 mg PO BID sennosides (senna) 17.2 mg PO DAILY thiamine HCl (vitamin B1) 100 mg PO DAILY valsartan 160 mg PO DAILY HPI Comments Details: 47-year-old woman with multiple medical problems with chronic leg ulcers and CKD. In the past serologies and ANCA titers were normal. She had sustained acute kidney injury which is resolved and she continues her chronic disease the baseline creatinine around 2 mg/dL. She is complaining of right-sided abdominal pain. Abdomen is bloated. She does have some constipation. Nexium has been ordered USG results pending Still with edema even after lowering Amlodipine On Metolazone 2 x week and Lasix 40 mg daily 05/27/24 Gained weight On Lasix 40 mg QD with MEtolazone 2.5 mg 2x week Diagnosed with diab retinopathy 05/06/25 The patient is a 49-year-old female presenting with resistant HTN and CKD s/p hernia surgery complications, suspected cancerous ulcer, The patient underwent hernia surgery in December, during which a mesh was implanted. However, the surgeon suspects mesh rejection due to persistent scabbing and discoloration at the surgical site. The patient is under wound care and is scheduled for a follow-up with the surgeon on June 10, with a potential for revision surgery if necessary. The patient reports a non-healing ulcer, suspected to be cancerous, which has persisted for over a year. A biopsy is scheduled for the upcoming Monday to confirm the diagnosis. The electronic health records specialist has recommended compression socks to be worn for two to three hours daily. The patient experiences chest pain radiating from the left side over the breast to the middle and under the arm. Her melter supervisor oxygen furnace has increased her valsartan dosage to 160 mg due to concerns about her kidney disease. The patient is also on hydralazine and furosemide, with adjustments made to avoid concurrent intake of valsartan and furosemide. She is concerned about her high blood pressure, which remains elevated despite medication adjustments. The patient suffers from neuropathy, with severe symptoms in her legs, hands, and feet. She reports a lack of sensation in her feet and lower legs, extending up to her knees, and significant pain in her hands, particularly in the morning and at night. The patient has diabetes mellitus and has recently switched to Humulin U-500 insulin, administered twice daily. Despite this change, her blood glucose levels remain elevated, ranging from 300 to 400 mg/dL. She has also started Ozempic at a dose of 0.25 mg, with plans to increase to 0.5 mg next week. 06/26/25 - The patient is a 49-year-old female presenting with follow-up for chronic disease management, specifically hypertension, neuropathy, and chronic leg ulcers. - Hypertension: Managed with nifedipine, improved control noted. - Neuropathy: Severe pain, methadone less effective, referral to pain management considered. - Chronic leg ulcers: Under wound care, pain persists. - Chronic kidney disease: Improved function, creatinine 2.11 mg/dL. - Obesity: 10-pound weight loss with Ozempic, improved blood sugar. - Nausea and vomiting: Post-Ozempic, managed by meal timing. - Urinary urgency: Frequent urges, possibly hydration-related. [facility] Medical History Hx of blood transfusion reaction Fungus ball Hernia PCOS (polycystic ovarian syndrome) Anxiety HTN (hypertension) Diabetes Surgical History Hx of cholecystectomy S/P discectomy for herniated nucleus pulposus H/O shoulder surgery History of mandibular surgery H/O oral surgery H/O brain surgery Family History Father Diabetes HTN (hypertension) Mother Diabetes HTN (hypertension) CAD (coronary artery disease) Social History Household Members Other:: female partner Housing: Apartment Alcohol intake: never Patient Tobacco Use Status: Former Tobacco user Tobacco use type: Cigarette Cigarettes Per Day: 10 Years Smoked: 30 Substance Use Type: Marijuana Physical Exam Vital Signs: Last Vital Signs Pulse 91 06/26/25 13:05 BP 132/82 06/26/25 13:05 Pulse Ox 97 06/26/25 13:05 Oxygen Delivery Method Room Air 06/26/25 13:05 BMI result Body Mass Index 37.0 Comfortable Neck supple no JVD. Lungs entry equal no rales. Heart S1-S2 heard no gallop or rub. Abdomen soft nontender. Neuro alert awake oriented. No asterixis. Extremities 1+ edema. Healing ulcer in left calf Results Reviewed Nephrology Results: Hgb, (12.0-16.0) 13.4 g/dl 05/06/25 WBC, (4.8-10.8) 7.5 X10*3/uL 05/06/25 Plt Count, (160-400) 171 X10*3/uL 05/06/25 Sodium, (135-145) 134 mmol/L L 05/06/25 Potassium, (3.3-5.1) 4.4 mmol/L 05/06/25 Chloride, (96-108) 104 mmol/L 05/06/25 Carbon Dioxide, (22-29) 22 mmol/L 05/06/25 BUN, (9-16) 20 mg/dL H 05/06/25 Creatinine, (0.5-1.4) 2.11 mg/dL H 05/06/25 Calcium, (8.4-10.2) 9.0 mg/dL 05/06/25 Phosphorus, (2.7-4.5) 3.3 mg/dL 05/06/25 PTH Intact, (8.7-77.1) 80.7 pg/mL H 05/06/25 Urine Protein, (Neg-Trace) 300 (3+) mg/dL H 06/10/24 Renal US 03/11/22 Assessment & Plan Assessment & Plan (1) Fungus ball: Comment: She has some right flank complaints. She has no dysuria Code(s): B49 - Unspecified mycosis Category: Medical (2) CKD (chronic kidney disease) stage 3, GFR 30-59 ml/min: Code(s): N18.30 - Chronic kidney disease, stage 3 unspecified Category: Medical (3) HTN (hypertension): Code(s): I10 - Essential (primary) hypertension Category: Medical Plan History of NEISHA superimposed on CKD. NEISHA superimposed on CKD. Creatinine is bumped up probably from natural progression She continues to have leg edema. Metolazone 5 mg QD Increase Lasix to 40 mg b.i.d. due to worsening edema Hold off amlodipine due to edema and Keep Hydralazine from 50 mg t.i.d. BP better controlled Low salt diet Waiting for colonoscopy followed by surgical evaluation. DM - Blood sugar is sub optimal Needs better control Follow up with Endocrine Upon her request request I will referred to Infectious Disease for follow-up regarding the fungal ball 05/06/25 Advanced CKD in a setting of DM and resistant HTN No recent renal panel Check BMP today Resistant HTN Add amlodipine 5 mg DAILY and titrate dose as tolerated Stay on low salt diet 06/26/25 BP well controlled Keep Procardia and other meds Cr stable at 2.11 NO changes today Agree with Ozempic and continue losing weight Orders: Orders Basic Metabolic Panel 4 Months N18.30 - Chronic kidney disease, stage 3 unspecified Complete Blood Count no Diff 4 Months N18.30 - Chronic kidney disease, stage 3 unspecified Coding Level of Care Code Est Pt Level 4 (98441) Diagnoses Fungus ball B49 CKD (chronic kidney disease) stage 3, GFR 30-59 ml/min N18.30 HTN (hypertension) I10
--- OUTSIDE RECORDS SUMMARY | 2025-06-26 16:38 | XMS_ITS | Clinical Summary ---
Author Organization [facility] Address [address] [place] [address] Care Team Providers Care Dry Mill Worker Name Role Phone Unavailable Primary Care Provider Unavailabl e Medications Medication Sig Dispensed Refills Start Date End Date Status [id number] ffeine 50-300-40 MG CAPS TAKE 1 CAPSULE [...] Group Subscriber ID Effective Dates Phone Address [facility] HAS [id number] 2020-Present [address] [facility] [address] [place] [address] [facility] [id number] [address] [place] [address] Loyda Dykes Personal/Family Self [address] [address]
--- OUTSIDE RECORDS SUMMARY | 2025-06-26 16:38 | XMS_ITS | Clinical Summary ---
Author Organization [facility] Address [address] [place] [address] Phone Care Team Providers Care Milling General Superintendent Name Role Phone Archie Quinones WORK CAR OPERATOR Primary Care Provider Allergies Active Allergy Reactions Criticality Noted Date Comments Adhesive Tape 12/19/2022 Allergic to tegaderm tape Amlodipine 12/19/2022 Iodinated Contrast Media 08/06/2021 Latex 04/12/2021 Other 04/12/2021 Prednisone 04/12/2021 Medications Pain Relief Extra Strength 500 MG tablet Take 2 tablets by mouth 1 (one) time each day 1 Active ProAir HFA 108 (90 Base) MCG/ACT inhaler Inhale 2 puffs every 4 (four) hours if needed 1 Active Cholecalciferol (Vitamin D3) 25 MCG tablet Take 1 capsule by mouth 1 (one) time each day 1 Active Lantus SoloStar 100 UNIT/ML injection 1 Active QUEtiapine (SEROquel) 300 MG tablet Take 350 mg by mouth 1 (one) time each day in the evening 1 Active GNP Vitamin B-1 100 MG tablet Take 1 tablet by mouth 1 (one) time each day 1 Active METHADONE HCL PO Take 130 mg by mouth every 6 (six) hours if needed for moderate pain Active famotidine (PEPCID) 20 MG tablet 1 Active ferrous sulfate 325 (65 Fe) MG tablet 1 Active fluconazole (DIFLUCAN) 100 MG tablet 1 Active lactulose (CHRONULAC) 10 GM/15ML solution 20 g 1 Active Insulin Lispro, 1 Unit Dial, 100 UNIT/ML solution pen-injector Inject under the skin 2 Active hydrALAZINE 50 MG tablet Take 1 tablet (50 mg total) by mouth in the morning and 1 tablet (50 mg total) in the evening and 1 tablet (50 mg total) before bedtime. 180 tablet 3 2 Active Senna-Time 8.6 MG tablet Take 2 tablets by mouth at night if needed 3 Active doxycycline (VIBRA-TABS) 100 MG tablet Take 1 tablet by mouth in the morning and 1 tablet in the evening. 3 Active cyclobenzaprine (FLEXERIL) 10 MG tablet Take 1 tablet by mouth 3 (three) times a day if needed 3 Active furosemide (LASIX) 40 MG tablet TAKE 1 TABLET (40 MG TOTAL) BY MOUTH IN THE MORNING AND 1 TABLET IN THE EVENING 180 tablet 1 3 Active albuterol (2.5 MG/3ML) 0.083% nebulizer solution INHALE 3 ML VIA NEBULIZER EVERY 6 HOURS FOR 30 DAYS NEEDED FOR WHEEZING 3 Active QUEtiapine (SEROquel) 50 MG tablet TAKE 1 TABLET BY MOUTH EVERY DAY WITH 300MG 3 Active valsartan (DIOVAN) 40 MG tablet Take 1 tablet (40 mg total) by mouth 1 (one) time each day 30 tablet 11 3 Active metOLazone 5 MG tabletIndication s:Stage 3b chronic kidney disease (HCC),Stage 5 chronic kidney disease (HCC),Edema, not otherwise specified,Hypert ensive chronic kidney disease, unspecified, with chronic kidney disease stage I through stage IV, or unspecified Take 1 tablet (5 mg total) by mouth 2 (two) times a week for 30 doses 30 tablet 4 Active Active Problems Problem Noted Date Diagnosed Date Severe obesity 01/26/2023 Stage 3b chronic kidney disease 05/31/2022 Type 2 diabetes mellitus wit h diabetic chronic kidney disease 05/31/2022 Edema 05/31/2022 Chronic kidney disease 05/30/2022 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 Lung mass 05/30/2022 Overview (05/30/2022): 3 mm left lower nodule on April 2017 Migraine 05/30/2022 Obese class I 05/30/2022 Renal tract candidiasis 05/30/2022 Viral hepatitis C 05/30/2022 Polycystic ovarian syndrome 05/30/2022 Diabetes mellitus 06/28/2021 Biliary dyskinesia 06/28/2021 Acute nontraumatic kidney injury 06/28/2021 Acute constipation 06/28/2021 Acute tubular necrosis 06/28/2021 Hypo-osmolality and hyponatremia 06/28/2021 Obstructive uropathy 06/28/2021 Immunizations Immunization Administration Dates Next Due Moderna SARS-COV-2 02/28/2021 Tdap 02/01/2012 Social History Tobacco Use Types Packs/Day Years Used Date Smoking Tobacco: Never Smokeless Tobacco: Never Tobacco Cessation:Counseling Given: No Alcohol Use Standard Drinks/Week Comments Never 0 (1 standard drink = 0.6 oz pur e alcohol) Comments Unknown Sex and Gender Information Value Date Recorded Sex Assigned at Not on file Legal Sex Female 11:07 AM EDT Gender Identity Not on file Sexual Orientation Not on file Last Filed Vital Signs Vital Sign Reading Time Taken Comments Blood Pressure 154/90 05/25/2023 2:04 PM EDT Pulse 88 05/25/2023 2:04 PM EDT Temperature - - Respiratory Rate - - Oxygen Saturation 98% 05/25/2023 2:04 PM EDT Inhaled Oxygen Concentration - - Weight 122 kg (269 lb) 05/25/2023 2:04 PM EDT Height - - Body Mass Index - - Plan of Treatment Health Maintenance Due Date Last Done Comments Breast Cancer Screening 1975 Hepatitis B Vaccine (1 of 3 - 19+ 3-dose series) 12/24 Pneumococcal Vaccine: 50+ Years (1 of 2 - PCV) 993 Diabetes: Hemoglobin A1C 06/28/2021 Diabetes: Ophthalmology Exam 06/28/2021 Diabetes: Pedal Pulse Checked 06/28/2021 Diabetes: Sensory Foot Exam 06/28/2021 Diabetes: Visual Foot Exam 06/28/2021 Colorectal Cancer Screening: Annual FOBT 2022 Colorectal Cancer Screening: Sigmoidoscopy 2022 Influenza Vaccine (#1) 2025 Colorectal Cancer Screening: Colonoscopy 10/18/2034 10/18/2024 Insurance [facility] Medicaid [facility] Medicaid Care Teams Milling General Superintendent Relationship Specialty Start Date End Date Archie Quinones NP [address] [place] [address] PCP - General Nurse Practitioner 11/10/21
--- OUTSIDE RECORDS SUMMARY | 2025-06-26 16:38 | XMS_ITS | Encounter Summary ---
Author Organization [facility] Address [address] [facility] [address] [facility] [address] [place] [address] Phone Care Team Providers Care Traveling Construction Superintendent Name Role Phone Archie Quinones PROCESS CONTROLLER Primary Care Provider Reason for Visit * Reason Comments Med Refill Encounter Details Date Type Department Care Team (Late st Contact Info) Description 02/13/2024 [facility]ill [facility] [address] [place] [id number] Jordan Huang MD [address] [facility] [address] [place] [address] Stage 3b chronic kidney disease (HCC); Stage 5 chronic kidney disease (HCC); Edema, not otherwise specified; Hypertensive chronic kidney disease, unspecified, with chronic [...] on file documented as of this encounter Plan of Treatment Not on file documented as of this encounter Visit Diagnoses Diagnosis Stage 3b chronic kidney disease (HCC) Stage 5 chronic kidney disease (HCC) Edema, not otherwise specified Hypertensive chronic kidney disease, unspecified, with chronic kidney disease stage I through stage IV, or unspecified documented in this encounter Care Teams Traveling Construction Superintendent Relationship Specialty Start Date End Date Archie Quinones NP [address] [place] [address] PCP - General Nurse Practitioner 11/10/21 documented as of this encounter
--- OUTSIDE RECORDS SUMMARY | 2025-06-26 16:38 | XMS_ITS | Encounter Summary ---
Author Organization [facility] Address [address] [place] [address] Phone Care Team Providers Care Chief Of Anesthesiology Name Role Phone Archie Quinones NP Primary Care Provider Reason for Visit * Reason Comments Med Refill Encounter Details Date Type Department Care Team (Late st Contact Info) Description 09/06/2022 Refill [facility] [address] [place] [phone] Stanley Holden MD Hypertensive chronic kidney disease, [...] unspecified documented in this encounter Care Teams Chief Of Anesthesiology Relationship Specialty Start Date End Date Archie Quinones NP [address] [facility] [place] PCP - General Nurse Practitioner 2/9/22 documented as of this encounter
== END 2025-06-26 13:20 | disposition home or self-care (01) ==
LOC: HO.HKA 11:46
PROVIDERS: PCP Nurse Practitioner Family; Visit Provider Internal Medicine Hypertension Specialist
DX: B49 Unspecified mycosis (principal); N18.30 Chronic kidney disease, stage 3 unspecified; I10 Essential (primary) hypertension
CPT/HCPCS: 99214

== ENCOUNTER → 2025-06-26 11:45 | Outpatient (BNVA) | payer OTHER, SELFPAY | PROVIDERS: PCP Nurse Practitioner Family; Visit Provider Internal Medicine Hypertension Specialist | DX: I10 Essential (primary) hypertension (principal); N18.30 Chronic kidney disease, stage 3 unspecified; B49 Unspecified mycosis; E11.9 Type 2 diabetes mellitus without complications | CPT/HCPCS: 99212 ==